=== PATIENT | male | born 1955 | race Caucasian/White ===

== ENCOUNTER 2016-12-02 11:39 | Emergency (ER) | payer MEDICARE, MEDICAID ==
--- NOTE | 2016-12-02 12:22 | ED Physician Chart ---
Chief Complaint/HPI - Patient Information Date Seen:: 12/02/16 Time Seen:: 12:00 Chief Complaint:: soreness lower legs and feet History of Present Illness:: patient has had soreness lower legs, feet and low back for a long time, since the or . Normally goes barefoot. Allergies:: Allergies Allergy/AdvReac Type Severity Reaction Status Date / Time MDX No Known Allergies - Nka Allergy Verified 02/04/14 15:46 [No Known Allergies - Nka] Vitals:: Vital Signs - 8 hr 12/02/16 11:59 Temp 98.7 F HR 78 RR 16 BP 181/117 O2 Sat % 98 Historian:: Patient Review:: Nurse's Note Reviewed Review of Systems - Review of Systems General/Constitutional: No fever, No chills Skin: Skin lesions Head: No headache, No light-headedness Eyes: No loss of vision ENT: No earache, No sore throat, No tinnitus Neck: No neck pain Cardio Vascular: No chest pain, No palpitations Pulmonary: No SOB GI: No nausea, No vomiting Musculoskeletal: Back pain, Muscle pain Endocrine: No polyuria, No polydipsia Psychiatric: Depression Hematopoietic: No bruising Allergic/Immuno: No urticaria Neurological: No syncope, No headache Past Medical History - Past Medical History Past Medical History: HTN, DM, Dyslipidemia, Other (gallstones; hypercholesterolemia) Family History: Heart disease Social History: Smoker, Other (smokes 1 1/2 PPD) Surgical History: Hernia Psychiatricy History: Depression Medication: Reviewed Family Medical History - Family Member Mother History Unknown: Yes Physical Exam - Physical Examination General/Constitutional: Well-developed, well-nourished, Alert Head: Atraumatic Eyes: Lids, conjuctiva normal, PERRL (callouses medial side both large toes; 5 mm band of erythema proximal to right large toe nail.) Other Skin comments:: callouses medal both large toes; 5 mm of erythma proximal to nail right large toe. ENMT: Tonsils nl Other ENMT comments:: 4/4 peridontal disease Neck: No nuchal rigidity Respiratory: Nl effort/Exclusion, Clear to Auscultation, No Wheeze/Rhonchi/Rales Cardio Vascular: RRR, No murmur, gallop, rubs GI: No tenderness/rebounding/guarding, No organomegaly, No hernia, Normal BS's, Nondistended : No CVA tenderness Other Extremities comments:: 2/4 pre-tibial edema; feet warm; neither dorsalis pedis pulse palpable. Left posterior tibial pulse 4/4; right not palpable Labs/Radiology/EKG Results - Lab Results Comments:: Laboratory Results - last 24 hr 12/02/16 12/02/16 12:26 12:26 WBC 7.9 D RBC 4.79 Hgb 15.0 Hct 45.1 MCV 94.2 MCH 31.3 H MCHC Differential 33.2 RDW 11.7 Plt Count 286 D MPV 6.1 Neutrophils % 66.9 Lymphocytes % 22.9 Monocytes % 7.1 Eosinophils % 2.4 Basophils % 0.7 Sodium 129 L Potassium 4.0 Chloride 97 L Carbon Dioxide 23.5 Anion Gap 12.5 BUN 14 Creatinine 0.8 Est GFR ( Amer) > 60.0 Est GFR (Non-Af Amer) > 60.0 BUN/Creatinine Ratio 17.5 Glucose 151 H Calcium 10.3 Magnesium 1.7 L - Radiology Results Results: arterial Doppler normal ED Septic Shock - . Is Septic Shock (SBP<90, OR Lactate>4 mmol\L) present?: No - <6hrs of presentation: Vital Signs: Vital Signs - 8 hr 12/02/16 11:59 Temp 98.7 F HR 78 RR 16 BP 181/117 O2 Sat % 98 Reassessment (Disposition) - Reassessment Reassessment Condition:: Unchanged - Diagnosis Diagnosis:: cellulitis right large toe; diabetic neuropathy; hypomagnesemia - Aftercare/Follow up Instructions Aftercare/Follow-Up Instructions:: Refer to Discharge Instructions Medication Prescribed:: Keflex 500 mg QID for 10 days K K - Patient Disposition Discharge/Transfer:: Home Condition at Disposition:: Stable, Unchanged
[2016-12-02 12:38] LABS: % BASOPHILS 0.7 % (0.0-2.0); % EOSINOPHILS 2.4 % (0.0-5.0); % LYMPHOCYTES 22.9 % (20.0-50.0); % MONOCYTES 7.1 % (2.0-10.0); % NEUTROPHILS 66.9 % (40.0-80.0); HEMATOCRIT 45.1 % (39.0-49.0); MEAN CELL VOLUME 94.2 fl (80-99); MEAN CORPUSCULAR HEMOGLOBIN 31.3 pg (26.0-30.0); MEAN CORPUSCULAR HGB CONC 33.2 pg (28.0-36.0); MEAN PLATELET VOLUME 6.1 fl; NEUTROPHILE ABSOLUTE 5.2 Th/cmm (1.8-8.0); RED BLOOD COUNT 4.79 Mil/cmm (4.30-5.70); RED CELL DISTRIBUTION WIDTH 11.7 % (11.5-20.0)
[2016-12-02 12:42] LABS: PLATELET COUNT 286 Th/cmm (150-400); WHITE BLOOD COUNT 7.9 Th/cmm (4.8-10.8)
[2016-12-02 12:49] LABS: ANION GAP 12.5 (7.0-16.0); BUN - UREA NITROGEN 14 mg/dL (7-25); BUN/CREATININE RATIO 17.5; CALCIUM SERUM 10.3 mg/dL (8.6-10.3); CARBON DIOXIDE 23.5 mEq/L (21.0-31.0); CHLORIDE 97 mEq/L (98-107); CREATININE - SERUM 0.8 mg/dL (0.7-1.3); GLUCOSE 151 mg/dL (70-105); MAGNESIUM 1.7 mg/dL (1.9-2.7); SODIUM SERUM 129 mEq/L (136-145)
--- NOTE | 2016-12-02 15:40 | Diagnostic Imaging Report ---
Bilateral lower extremity Doppler arterial ultrasound exam HISTORY: Absent pulses, atherosclerotic vascular disease Sonographic sector images were obtained through the arterial systems of both legs. Associated Doppler data was obtained. The exam the right leg demonstrates triphasic waveforms within the common femoral, superficial femoral, popliteal, anterior tibial, posterior tibial, and dorsalis pedis arteries. Slight decrease in velocity noted within the distal superficial femoral and popliteal artery regions. Elevated velocity noted within the right posterior tibial artery. The ankle-brachial index remains normal (1.0). Sonographic images demonstrate mild to moderate diffuse atherosclerotic plaque throughout the arterial system. The exam of the left leg demonstrates triphasic waveforms throughout the arterial system with the exception of biphasic waveforms through the anterior tibial artery. Slight increase in velocity noted within the left popliteal artery and posterior tibial artery regions. The ankle-brachial index appears normal (1.1). Mild to moderate diffuse atherosclerotic changes noted on sonographic images. IMPRESSION: 1. Mild to moderate diffuse bilateral atherosclerotic changes. No discrete focal occlusion identified.
== END 2016-12-02 14:30 | disposition home or self-care (01) ==
LOC: ER 11:39
DX: L03.031 Cellulitis of right toe (principal); E11.40 Type 2 diabetes mellitus with diabetic neuropathy, unspecified; E83.42 Hypomagnesemia; I10 Essential (primary) hypertension; E78.5 Hyperlipidemia, unspecified; E78.00 Pure hypercholesterolemia, unspecified; F17.210 Nicotine dependence, cigarettes, uncomplicated
CPT/HCPCS: 36415-UA; 80048-TC; 83735-TC; 85025-TC; 93925-TC

== ENCOUNTER 2020-05-21 13:01 | Inpatient (IN) | payer MEDICARE, MEDICAID ==
[2020-05-21 22:16] VITALS: BP 145/70
[2020-05-21] MEDS ORDERED: Acetaminophen 500 MG TAB PO PRN (22:22)
[2020-05-21] MEDS ORDERED: Maalox 30 mL Cup PO PRN (22:22)
[2020-05-21] MEDS ORDERED: Magnesium Hydroxide (MOM) 30 mL UDC PO PRN (22:22)
[2020-05-22] MEDS: Multivitamin Tab PO SCH (08:30)
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
[2020-05-23] MEDS: Multivitamin Tab PO SCH (08:31)
[2020-05-23] MEDS: Aspirin 81mg Chewable Tab PO SCH (08:31)
[2020-05-23 14:21] LABS: HEMOGLOBIN 13.9 g/dL (14.0-18.0); RED BLOOD COUNT 4.36 MIL/uL (4.2-6.2); WHITE BLOOD COUNT 7.8 K/uL (4.8-10.8)
[2020-05-23 14:22] LABS: % NEUTROPHILS 59.5 % (40-70); BASOPHILS % (AUTO) 0.7 % (0.0-2.0); EOSINOPHILS % (AUTO) 3.6 % (0-4); HEMATOCRIT 40.4 % (36-54); LYMPHOCYTES % (AUTO) 29.4 % (20.5-51.5); MEAN CORPUSCULAR HEMOGLOBIN 32 pg (27-31); MEAN CORPUSCULAR HGB CONC 34 % (32-36); MEAN CORPUSCULAR VOLUME 93 fL (79.0-98.0); MONOCYTES % (AUTO) 6.8 % (1.7-9.3); NEUTROPHILS # (AUTO) 4.6 K/uL (1.8-7.7); PLATELET COUNT 252 K/uL (130-430); RED CELL DISTRIBUTION WIDTH 13.1 % (9.0-15.0)
[2020-05-23 14:23] LABS: BASOPHILS # (AUTO) 0.1 K/uL (0.0-0.2); EOSINOPHILS # (AUTO) 0.3 K/uL (0.0-0.4); LYMPHOCYTES # (AUTO) 2.3 K/uL (1.0-5.5); MONOCYTES # (AUTO) 0.5 K/uL (0.0-1.0)
--- NOTE | 2020-05-23 14:35 | Internal Medicine Prog Note ---
Internal Medicine Subjective - Subjective Service Date: 05/23/20 Patient seen and examined:: without staff Patient is:: awake Per staff patient has:: no adverse event, no episodes of fall (no complaints) Internal Medicine Objective - Results Result Diagrams: 05/23/20 13:05 Recent Labs: Laboratory Last Values WBC 7.8 K/uL (4.8-10.8) 05/23/20 13:05 RBC 4.36 MIL/uL (4.2-6.2) 05/23/20 13:05 Hgb 13.9 g/dL (14.0-18.0) L 05/23/20 13:05 Hct 40.4 % (36-54) 05/23/20 13:05 MCV 93 fL (79.0-98.0) 05/23/20 13:05 MCH 32 pg (27-31) H 05/23/20 13:05 MCHC 34 % (32-36) 05/23/20 13:05 RDW 13.1 % (9.0-15.0) 05/23/20 13:05 Plt Count 252 K/uL (130-430) 05/23/20 13:05 MPV 6.9 fl (7.4-10.4) L 05/23/20 13:05 Neut % (Auto) 59.5 % (40-70) 05/23/20 13:05 Lymph % (Auto) 29.4 % (20.5-51.5) 05/23/20 13:05 [place] % (Auto) 6.8 % (1.7-9.3) 05/23/20 13:05 Eos % (Auto) 3.6 % (0-4) 05/23/20 13:05 Baso % (Auto) 0.7 % (0.0-2.0) 05/23/20 13:05 Neut # (Auto) 4.6 K/uL (1.8-7.7) 05/23/20 13:05 Lymph # (Auto) 2.3 K/uL (1.0-5.5) 05/23/20 13:05 [place] # (Auto) 0.5 K/uL (0.0-1.0) 05/23/20 13:05 Eos # (Auto) 0.3 K/uL (0.0-0.4) 05/23/20 13:05 Baso # (Auto) 0.1 K/uL (0.0-0.2) 05/23/20 13:05 POC Glucose 150 MG/DL (70 - 105) H 05/21/20 19:56 - Physical Exam Vitals and I&O: Vital Signs Temp 97.9 F 05/23/20 06:06 Pulse 68 05/23/20 06:06 Resp 18 05/23/20 07:40 BP 117/63 05/23/20 06:06 Pulse Ox 95 05/23/20 06:06 Intake & Output 05/22/20 05/23/20 05/23/20 18:59 06:59 18:59 Intake Total 1200 240 Balance 1200 240 Intake: Oral 1200 240 Other: # Voids 4 1 # Bowel Movements 1 Active Medications: Current Medications Acetaminophen (Tylenol) 650 mg PO Q4H PRN PRN Reason: Pain (Mild 1-3) Stop: 07/20/20 22:21 Acetaminophen (Tylenol Extra Strength) 1,000 mg PO Q6H PRN PRN Reason: Pain (Moderate 4-6) Stop: 07/20/20 22:21 Al Hydrox/Mg Hydrox/Simethicone (Maalox) 30 ml PO Q4HR PRN PRN Reason: GI DISTRESS Stop: 07/20/20 22:21 Aspirin (Aspirin Chewable) 81 mg PO DAILY [facility] Stop: 07/22/20 08:59 Last Admin: 05/23/20 08:31 Dose: 81 mg Ibuprofen (Motrin) 400 mg PO Q4H PRN PRN Reason: Pain (Severe 7-10) Stop: 07/20/20 22:21 Lorazepam (Ativan) 0.5 mg PO Q4HR PRN; Protocol PRN Reason: Anxiety Stop: 06/20/20 22:21 Last Admin: 05/23/20 08:31 Dose: 0.5 mg Magnesium Hydroxide (Milk Of Magnesia) 30 ml PO HS PRN PRN Reason: Constipation Multivitamins/Vitamin C (Theragran) 1 tab PO DAILY JAN Stop: 07/21/20 08:59 Last Admin: 05/23/20 08:31 Dose: 1 tab Risperidone (Risperdal) 0.5 mg PO BID JAN; Protocol Stop: 07/21/20 16:59 Last Admin: 05/23/20 08:31 Dose: 0.5 mg Zolpidem Tartrate (Ambien) 5 mg PO HS PRN PRN Reason: Insomnia Stop: 07/20/20 22:21 Last Admin: 05/22/20 21:04 Dose: 5 mg General: lethargic HEENT: NC/AT Neck: Supple Lungs: CTAB Cardiovascular: RRR, Normal S1, Normal S2 Abdomen: soft Extremities: clear - Procedures Procedures: Procedures Procedure Code Date OTHER GROUP THERAPY 94.44 02/04/14 Internal Medicine Assmt/Plan - Assessment Assessment: 1. DM 2. HTN - Plan Plan: continue meds reviewed medical records d/w r.n.
[2020-05-23 14:41] LABS: POTASSIUM SERUM 4.1 mmol/L (3.5-5.1)
[2020-05-23 14:42] LABS: BILIRUBIN,TOTAL 0.4 mg/dL (0.0-1.0); CALCIUM SERUM 9.2 mg/dL (8.4-10.2); CREATININE - SERUM 1.02 mg/dL (0.70-1.30); TOTAL PROTEIN,SERUM 6.2 g/dL (6.4-8.3)
[2020-05-23 14:43] LABS: CHOLESTEROL 139 mg/dL (<200); LDL CHOLESTEROL 78 mg/dL (0-129); TRIGLYCERIDES 252 mg/dL (30-150)
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
[2020-05-24] MEDS: Aspirin 81mg Chewable Tab PO SCH (08:53)
[2020-05-24] MEDS: Multivitamin Tab PO SCH (08:53)
--- NOTE | 2020-05-24 14:30 | General Progress Note ---
Subjective - Review of Systems Service Date: 05/24/20 Subjective: * Visit * Lab Results * Nursing staff concerned about abnormal labs * No acute symptoms Objective - Results Result Diagrams: 05/23/20 13:05 05/23/20 13:05 Recent Labs: Laboratory Last Values WBC 7.8 K/uL (4.8-10.8) 05/23/20 13:05 RBC 4.36 MIL/uL (4.2-6.2) 05/23/20 13:05 Hgb 13.9 g/dL (14.0-18.0) L 05/23/20 13:05 Hct 40.4 % (36-54) 05/23/20 13:05 MCV 93 fL (79.0-98.0) 05/23/20 13:05 MCH 32 pg (27-31) H 05/23/20 13:05 MCHC 34 % (32-36) 05/23/20 13:05 RDW 13.1 % (9.0-15.0) 05/23/20 13:05 Plt Count 252 K/uL (130-430) 05/23/20 13:05 MPV 6.9 fl (7.4-10.4) L 05/23/20 13:05 Neut % (Auto) 59.5 % (40-70) 05/23/20 13:05 Lymph % (Auto) 29.4 % (20.5-51.5) 05/23/20 13:05 [place] % (Auto) 6.8 % (1.7-9.3) 05/23/20 13:05 Eos % (Auto) 3.6 % (0-4) 05/23/20 13:05 Baso % (Auto) 0.7 % (0.0-2.0) 05/23/20 13:05 Neut # (Auto) 4.6 K/uL (1.8-7.7) 05/23/20 13:05 Lymph # (Auto) 2.3 K/uL (1.0-5.5) 05/23/20 13:05 [place] # (Auto) 0.5 K/uL (0.0-1.0) 05/23/20 13:05 Eos # (Auto) 0.3 K/uL (0.0-0.4) 05/23/20 13:05 Baso # (Auto) 0.1 K/uL (0.0-0.2) 05/23/20 13:05 Sodium 127 mmol/L (136-145) L 05/23/20 13:05 Potassium 4.1 mmol/L (3.5-5.1) 05/23/20 13:05 Chloride 95 mmol/L (98-107) L 05/23/20 13:05 Carbon Dioxide 26 mmol/L (23-29) 05/23/20 13:05 Anion Gap 10 (5-15) 05/23/20 13:05 BUN 20 mg/dL (8-21) 05/23/20 13:05 Creatinine 1.02 mg/dL (0.70-1.30) 05/23/20 13:05 Glucose 143 mg/dL (70-99) H 05/23/20 13:05 POC Glucose 150 MG/DL (70 - 105) H 05/21/20 19:56 Hemoglobin A1c 6.0 % (4.8-5.6) H 05/23/20 12:55 Calcium 9.2 mg/dL (8.4-10.2) 05/23/20 13:05 Total Bilirubin 0.4 mg/dL (0.0-1.0) 05/23/20 13:05 AST 23 U/L (10-37) 05/23/20 13:05 ALT 30 U/L (12-78) 05/23/20 13:05 Alkaline Phosphatase 72 U/L (46-116) 05/23/20 13:05 Total Protein 6.2 g/dL (6.4-8.3) L 05/23/20 13:05 Albumin 3.1 g/dL (3.4-5.0) L 05/23/20 13:05 Triglycerides 252 mg/dL (30-150) H 05/23/20 13:05 Cholesterol 139 mg/dL (<200) 05/23/20 13:05 LDL Cholesterol 78 mg/dL (0-129) 05/23/20 13:05 HDL Cholesterol 38 mg/dL (>45) L 05/23/20 13:05 Vitamin B12 541 pg/mL (232-1245) 05/23/20 13:05 TSH 1.64 uIU/ml (0.358-3.740) 05/23/20 13:05 - Physical Exam Vitals and I&O: Vital Signs Temp 97.8 F 05/24/20 06:07 Pulse 65 05/24/20 06:07 Resp 20 05/24/20 08:00 BP 126/96 05/24/20 06:07 Pulse Ox 96 05/24/20 06:07 Intake & Output 05/23/20 05/24/20 05/24/20 18:59 06:59 18:59 Intake Total 1200 360 Balance 1200 360 Intake: Oral 1200 360 Other: # Voids 2 # Bowel Movements 1 0 Active Medications: Current Medications Acetaminophen (Tylenol) 650 mg PO Q4H PRN PRN Reason: Pain (Mild 1-3) Stop: 07/20/20 22:21 Acetaminophen (Tylenol Extra Strength) 1,000 mg PO Q6H PRN PRN Reason: Pain (Moderate 4-6) Stop: 07/20/20 22:21 Al Hydrox/Mg Hydrox/Simethicone (Maalox) 30 ml PO Q4HR PRN PRN Reason: GI DISTRESS Stop: 07/20/20 22:21 Last Admin: 05/23/20 23:30 Dose: 30 ml Aspirin (Aspirin Chewable) 81 mg PO DAILY JAN Stop: 07/22/20 08:59 Last Admin: 05/24/20 08:53 Dose: 81 mg Ibuprofen (Motrin) 400 mg PO Q4H PRN PRN Reason: Pain (Severe 7-10) Stop: 07/20/20 22:21 Lorazepam (Ativan) 0.5 mg PO Q4HR PRN; Protocol PRN Reason: Anxiety Stop: 06/20/20 22:21 Last Admin: 05/23/20 23:31 Dose: 0.5 mg Magnesium Hydroxide (Milk Of Magnesia) 30 ml PO HS PRN PRN Reason: Constipation Multivitamins/Vitamin C (Theragran) 1 tab PO DAILY JAN Stop: 07/21/20 08:59 Last Admin: 05/24/20 08:53 Dose: 1 tab Risperidone (Risperdal) 0.5 mg PO BID JAN; Protocol Stop: 07/21/20 16:59 Last Admin: 05/24/20 08:53 Dose: 0.5 mg Zolpidem Tartrate (Ambien) 5 mg PO HS PRN PRN Reason: Insomnia Stop: 07/20/20 22:21 Last Admin: 05/23/20 21:14 Dose: 5 mg General: No acute distress Cardiovascular: Regular rate, Normal S1, Normal S2 Lungs: Clear to auscultation, Normal air movement Abdomen: Bowel sounds, Soft - Procedures Procedures: Procedures Procedure Code Date OTHER GROUP THERAPY 94.44 02/04/14 Assessment/Plan - Assessment Assessment: * DM * HTN * Hyponatremia * Dyslipidemia * Hypoalbuminemia * Protein-Calorie Malnutrition (Moderate) * Schizophrenia - Plan Plan: Fluid restriction Obtain labs on Tuesday
--- NOTE | 2020-05-24 14:37 | Progress Notes ---
DATE: 05/24/2020 Covering for Ottoniel Lala M.D. SUBJECTIVE: The patient was interviewed. Case was discussed with staff. Chart and records were reviewed. Per the staff, the patient has been easily irritable and paranoid. The patient also apparently has been disheveled, unkempt. The patient was visited at bedside. He is quite withdrawn. He is sleeping. He does awake to his name, but does not want to cooperate at all with the interview, mumbling speech and unable to assess otherwise due to his poor cooperation. MENTAL STATUS EXAMINATION: The patient is an elderly male, sleeping in his hospital bed, awakes to his name, but quickly falls back asleep, otherwise unable to assess due to his poor cooperation. ASSESSMENT AND PLAN: We will continue the patient's acute psychiatric hospitalization. We will continue medications as prescribed. No side effects have been noted. We will monitor for improvement. We will also attempt to help the patient develop a plan for self-care and we will also encourage the patient to participate in group and milieu therapy. JOB# [id number]
[2020-05-25] MEDS: Multivitamin Tab PO SCH (08:59)
[2020-05-25] MEDS: Aspirin 81mg Chewable Tab PO SCH (08:59)
[2020-05-26] MEDS: Multivitamin Tab PO SCH (08:03)
[2020-05-26] MEDS: Aspirin 81mg Chewable Tab PO SCH (08:04)
--- NOTE | 2020-05-27 06:22 | Psych Progress Note ---
Psych Progress Note - Intro Date of Progress Note: 05/26/20 - Assessment Assessment: patient remains disorganized, disheveled, easily angered. internally pre- occupied and paranoid. he is uncooperative with interview and irritable. - Vitals, I&O Vitals: Vital Signs - 24 hr 05/26/20 05/26/20 05/26/20 08:04 13:37 14:42 Temp 97.3 F HR 72 82 RR 20 20 BP 108/50 106/56 O2 Sat % 96 05/26/20 05/26/20 05/27/20 19:38 20:11 05:46 Temp 97.6 F 98.1 F HR 70 69 RR 18 20 18 BP 119/51 117/50 O2 Sat % 96 97 - Objective Psych General Appearance: Report: Little eye-contact Psych Behavior: Report: Uncooperative Psych Mood: Report: Angry Psych Affect: Report: Flat Psych Insight: Report: Impaired Psych Judgement: Report: Impaired - Plan Plan: cont meds - Review of Relevant Data Review of Relevant Data: I have reviewed the following items and time gisell (where applicable) has been applied. - Medications Current Medications: Current Medications Acetaminophen (Tylenol) 650 mg PO Q4H PRN PRN Reason: Pain (Mild 1-3) Stop: 07/20/20 22:21 Acetaminophen (Tylenol Extra Strength) 1,000 mg PO Q6H PRN PRN Reason: Pain (Moderate 4-6) Stop: 07/20/20 22:21 Al Hydrox/Mg Hydrox/Simethicone (Maalox) 30 ml PO Q4HR PRN PRN Reason: GI DISTRESS Stop: 07/20/20 22:21 Last Admin: 05/23/20 23:30 Dose: 30 ml Aspirin (Aspirin Chewable) 81 mg PO DAILY [facility] Stop: 07/22/20 08:59 Last Admin: 05/26/20 08:04 Dose: 81 mg Fluoxetine HCl (Prozac) 10 mg PO DAILY [facility] Stop: 07/24/20 08:59 Ibuprofen (Motrin) 400 mg PO Q4H PRN PRN Reason: Pain (Severe 7-10) Stop: 07/20/20 22:21 Lisinopril (Zestril) 5 mg PO DAILY [facility] Stop: 07/24/20 08:59 Last Admin: 05/26/20 08:04 Dose: Not Given Lorazepam (Ativan) 0.5 mg PO Q4HR PRN; Protocol PRN Reason: Anxiety Stop: 06/20/20 22:21 Last Admin: 05/23/20 23:31 Dose: 0.5 mg Multivitamins/Vitamin C (Theragran) 1 tab PO DAILY JAN Stop: 07/21/20 08:59 Last Admin: 05/26/20 08:03 Dose: 1 tab Risperidone (Risperdal) 1 mg PO BID JAN; Protocol Stop: 07/26/20 08:59 Simvastatin (Zocor) 10 mg PO HS JAN Stop: 07/23/20 20:59 Last Admin: 05/26/20 21:04 Dose: 10 mg Zolpidem Tartrate (Ambien) 5 mg PO HS PRN PRN Reason: Insomnia Stop: 07/20/20 22:21 Last Admin: 05/26/20 21:04 Dose: 5 mg
--- NOTE | 2020-05-27 06:22 | Psych Progress Note ---
Psych Progress Note - Intro Date of Progress Note: 05/25/20 - Assessment Assessment: patient remains disorganized, disheveled, easily angered. internally pre- occupied and paranoid. he is uncooperative with interview and irritable. - Vitals, I&O Vitals: Vital Signs - 24 hr 05/26/20 05/26/20 05/26/20 08:04 13:37 14:42 Temp 97.3 F HR 72 82 RR 20 20 BP 108/50 106/56 O2 Sat % 96 05/26/20 05/26/20 05/27/20 19:38 20:11 05:46 Temp 97.6 F 98.1 F HR 70 69 RR 18 20 18 BP 119/51 117/50 O2 Sat % 96 97 - Objective Psych General Appearance: Report: Little eye-contact Psych Behavior: Report: Uncooperative Psych Mood: Report: Angry Psych Affect: Report: Flat Psych Insight: Report: Impaired Psych Judgement: Report: Impaired - Plan Plan: cont meds - Review of Relevant Data Review of Relevant Data: I have reviewed the following items and time gisell (where applicable) has been applied. Psych Data Reviewed: Radiology - Medications Current Medications: Current Medications Acetaminophen (Tylenol) 650 mg PO Q4H PRN PRN Reason: Pain (Mild 1-3) Stop: 07/20/20 22:21 Acetaminophen (Tylenol Extra Strength) 1,000 mg PO Q6H PRN PRN Reason: Pain (Moderate 4-6) Stop: 07/20/20 22:21 Al Hydrox/Mg Hydrox/Simethicone (Maalox) 30 ml PO Q4HR PRN PRN Reason: GI DISTRESS Stop: 07/20/20 22:21 Last Admin: 05/23/20 23:30 Dose: 30 ml Aspirin (Aspirin Chewable) 81 mg PO DAILY [facility] Stop: 07/22/20 08:59 Last Admin: 05/26/20 08:04 Dose: 81 mg Fluoxetine HCl (Prozac) 10 mg PO DAILY [facility] Stop: 07/24/20 08:59 Ibuprofen (Motrin) 400 mg PO Q4H PRN PRN Reason: Pain (Severe 7-10) Stop: 07/20/20 22:21 Lisinopril (Zestril) 5 mg PO DAILY [facility] Stop: 07/24/20 08:59 Last Admin: 05/26/20 08:04 Dose: Not Given Lorazepam (Ativan) 0.5 mg PO Q4HR PRN; Protocol PRN Reason: Anxiety Stop: 06/20/20 22:21 Last Admin: 05/23/20 23:31 Dose: 0.5 mg Multivitamins/Vitamin C (Theragran) 1 tab PO DAILY [facility] Stop: 07/21/20 08:59 Last Admin: 05/26/20 08:03 Dose: 1 tab Risperidone (Risperdal) 1 mg PO BID JAN; Protocol Stop: 07/26/20 08:59 Simvastatin (Zocor) 10 mg PO HS JAN Stop: 07/23/20 20:59 Last Admin: 05/26/20 21:04 Dose: 10 mg Zolpidem Tartrate (Ambien) 5 mg PO HS PRN PRN Reason: Insomnia Stop: 07/20/20 22:21 Last Admin: 05/26/20 21:04 Dose: 5 mg
[2020-05-27] MEDS: Aspirin 81mg Chewable Tab PO SCH (08:12)
[2020-05-27] MEDS: Multivitamin Tab PO SCH (08:15)
[2020-05-27 14:10] LABS: CREATININE - SERUM 0.88 mg/dL (0.70-1.30); POTASSIUM SERUM 4.1 mmol/L (3.5-5.1)
[2020-05-27 14:11] LABS: CALCIUM SERUM 8.8 mg/dL (8.4-10.2)
--- NOTE | 2020-05-27 15:11 | Progress Notes ---
DATE: 05/27/2020 SUBJECTIVE: A 65-year-old male, currently in the hospital, noted to be with some periods of outbursts. Staff noting sometimes noted to be aggressive, responding to internal stimuli, angry, paranoid. Mostly withdrawn, keeps to self, some periods of socializing well, but he is easily angered. Poor frustration tolerance. Still talking in an angry voice, can be aggressive at times, concerns he may strike out. __ medication was on a higher dose of Risperdal in the past. Fair sleep and appetite. ASSESSMENT: The patient is symptomatic, still with ongoing concerns for psychosis. PLAN: I will be increasing his dosing of Risperdal today. [facility]# [id number]
--- NOTE | 2020-05-27 19:08 | Internal Medicine Prog Note ---
Internal Medicine Subjective - Subjective Service Date: 05/27/20 (Late entry) Patient seen and examined:: without staff (no fevers no cough no chest pain no sob) Patient is:: awake Per staff patient has:: no adverse event, no episodes of fall (no complaints) Internal Medicine Objective - Results Result Diagrams: 05/23/20 13:05 05/27/20 09:35 Recent Labs: Laboratory Last Values WBC 7.8 K/uL (4.8-10.8) 05/23/20 13:05 RBC 4.36 MIL/uL (4.2-6.2) 05/23/20 13:05 Hgb 13.9 g/dL (14.0-18.0) L 05/23/20 13:05 Hct 40.4 % (36-54) 05/23/20 13:05 MCV 93 fL (79.0-98.0) 05/23/20 13:05 MCH 32 pg (27-31) H 05/23/20 13:05 MCHC 34 % (32-36) 05/23/20 13:05 RDW 13.1 % (9.0-15.0) 05/23/20 13:05 Plt Count 252 K/uL (130-430) 05/23/20 13:05 MPV 6.9 fl (7.4-10.4) L 05/23/20 13:05 Neut % (Auto) 59.5 % (40-70) 05/23/20 13:05 Lymph % (Auto) 29.4 % (20.5-51.5) 05/23/20 13:05 [place] % (Auto) 6.8 % (1.7-9.3) 05/23/20 13:05 Eos % (Auto) 3.6 % (0-4) 05/23/20 13:05 Baso % (Auto) 0.7 % (0.0-2.0) 05/23/20 13:05 Neut # (Auto) 4.6 K/uL (1.8-7.7) 05/23/20 13:05 Lymph # (Auto) 2.3 K/uL (1.0-5.5) 05/23/20 13:05 [place] # (Auto) 0.5 K/uL (0.0-1.0) 05/23/20 13:05 Eos # (Auto) 0.3 K/uL (0.0-0.4) 05/23/20 13:05 Baso # (Auto) 0.1 K/uL (0.0-0.2) 05/23/20 13:05 Sodium 134 mmol/L (136-145) L 05/27/20 09:35 Potassium 4.1 mmol/L (3.5-5.1) 05/27/20 09:35 Chloride 101 mmol/L (98-107) 05/27/20 09:35 Carbon Dioxide 26 mmol/L (23-29) 05/27/20 09:35 Anion Gap 11 (5-15) 05/27/20 09:35 BUN 19 mg/dL (8-21) 05/27/20 09:35 Creatinine 0.88 mg/dL (0.70-1.30) 05/27/20 09:35 Glucose 151 mg/dL (70-99) H 05/27/20 09:35 POC Glucose 150 MG/DL (70 - 105) H 05/21/20 19:56 Hemoglobin A1c 6.0 % (4.8-5.6) H 05/23/20 12:55 Calcium 8.8 mg/dL (8.4-10.2) 05/27/20 09:35 Total Bilirubin 0.4 mg/dL (0.0-1.0) 05/23/20 13:05 AST 23 U/L (10-37) 05/23/20 13:05 ALT 30 U/L (12-78) 05/23/20 13:05 Alkaline Phosphatase 72 U/L (46-116) 05/23/20 13:05 Total Protein 6.2 g/dL (6.4-8.3) L 05/23/20 13:05 Albumin 3.1 g/dL (3.4-5.0) L 05/23/20 13:05 Triglycerides 252 mg/dL (30-150) H 05/23/20 13:05 Cholesterol 139 mg/dL (<200) 05/23/20 13:05 LDL Cholesterol 78 mg/dL (0-129) 05/23/20 13:05 HDL Cholesterol 38 mg/dL (>45) L 05/23/20 13:05 Vitamin B12 541 pg/mL (232-1245) 05/23/20 13:05 TSH 1.64 uIU/ml (0.358-3.740) 05/23/20 13:05 - Physical Exam Vitals and I&O: Vital Signs Temp 96.8 F 05/27/20 14:49 Pulse 74 05/27/20 14:49 Resp 20 05/27/20 14:49 BP 106/44 05/27/20 14:49 Pulse Ox 96 05/27/20 14:49 Intake & Output 05/27/20 05/27/20 05/28/20 06:59 18:59 06:59 Intake Total 240 Balance 240 Intake: Oral 240 Other: # Voids 1 Active Medications: Current Medications Acetaminophen (Tylenol) 650 mg PO Q4H PRN PRN Reason: Pain (Mild 1-3) Stop: 07/20/20 22:21 Acetaminophen (Tylenol Extra Strength) 1,000 mg PO Q6H PRN PRN Reason: Pain (Moderate 4-6) Stop: 07/20/20 22:21 Al Hydrox/Mg Hydrox/Simethicone (Maalox) 30 ml PO Q4HR PRN PRN Reason: GI DISTRESS Stop: 07/20/20 22:21 Last Admin: 05/23/20 23:30 Dose: 30 ml Aspirin (Aspirin Chewable) 81 mg PO DAILY [facility] Stop: 07/22/20 08:59 Last Admin: 05/27/20 08:12 Dose: 81 mg Fluoxetine HCl (Prozac) 10 mg PO DAILY [facility] Stop: 07/24/20 08:59 Last Admin: 05/27/20 08:14 Dose: 10 mg Ibuprofen (Motrin) 400 mg PO Q4H PRN PRN Reason: Pain (Severe 7-10) Stop: 07/20/20 22:21 Lisinopril (Zestril) 5 mg PO DAILY [facility] Stop: 07/24/20 08:59 Last Admin: 05/27/20 08:13 Dose: 5 mg Lorazepam (Ativan) 0.5 mg PO Q4HR PRN; Protocol PRN Reason: Anxiety Stop: 06/20/20 22:21 Last Admin: 05/23/20 23:31 Dose: 0.5 mg Multivitamins/Vitamin C (Theragran) 1 tab PO DAILY [facility] Stop: 07/21/20 08:59 Last Admin: 05/27/20 08:15 Dose: 1 tab Risperidone 1 mg/ Risperidone (0.5 mg) 1.5 mg PO BID JAN Stop: 07/26/20 16:59 Last Admin: 05/27/20 16:31 Dose: 1.5 mg Simvastatin (Zocor) 10 mg PO HS JAN Stop: 07/23/20 20:59 Last Admin: 05/26/20 21:04 Dose: 10 mg Zolpidem Tartrate (Ambien) 5 mg PO HS PRN PRN Reason: Insomnia Stop: 07/20/20 22:21 Last Admin: 05/26/20 21:04 Dose: 5 mg General: lethargic HEENT: NC/AT Neck: Supple Lungs: CTAB Cardiovascular: RRR, Normal S1, Normal S2 Abdomen: soft Extremities: clear - Procedures Procedures: Procedures Procedure Code Date OTHER GROUP THERAPY 94.44 02/04/14 Internal Medicine Assmt/Plan - Assessment Assessment: 1. DM 2. HTN - Plan Plan: continue meds reviewed medical records d/w r.n. Nutritional Asmnt/Malnutr-PDOC - Dietary Evaluation Malnutrition Findings (Please click <Entered> for more info): Nutritional Asmnt/Malnutrition Start: 05/25/20 09: 46 Text: Status: Complete Freq: Protocol: Document 05/25/20 09:46 MISTY (Rec: 05/25/20 09:55 MISTY [email or web address]- [id number]) Nutritional Asmnt/Malnutrition Patient General Information Nutritional Screening Moderate Risk Diagnosis Psychosis Pertinent Medical Hx/Surgical Hx Diabetes, Hypertension Subjective Information Per H&P, patient was admitted from [facility] for agitation for being a threat to family members and neighbors. Per nursing notes, patient is on fluid restriction due to sodium level. FNS providing patient with ~1600 kcal, 80gm protein; eating 100% of meals. Meeting ~75% of calorie and 89% of protein goals Current Diet Order/ Nutrition Support 60 gm CCHO, NCS Patient / S.O Not Indicated Pertinent Medications Maalox, MOM, Theragran Pertinent Labs (05/23) Na 127, Albumin 3.1, TAG 252, HDL 38, HGA1C 6 Nutritional Hx/Data Height 1.83 m Height (Calculated Centimeters) 182.9 Current Weight (lbs) 108.862 kg Weight (Calculated Kilograms) 108.9 Weight (Calculated Grams) 787074.2 [place] Body Weight 178 % [place] Body Weight 134 Body Mass Index (BMI) 32.5 Recent Weight Change No Weight Status Obese GI Symptoms GI Symptoms None Last BM 05/23 x 1 Difficult in: None Food Allergies No Cultural/Ethnic/Alevism Belief none indicated Usual diet at home unknown Skin Integrity/Comment: Jone 22, intact Current %PO Good (75-100%) Estimated Nutritional Goals BEE in Kcals: Adj wt of IBW Calories/Kcals/Kg ADj BW 87.9kg Kcals Calculated ~8041-8882 kcal/day (25-30 kcal/kg) Protein: Adj wt of IBW Protein g/kgm/kg Protein Calculated ~90 gm/day Fluid: ml ~8627-1390 kcal/day (1 ml/kcal ) Nutritional Problem 1. Problem Problem Altered nutrition related lab values related to Etiology electrolyte imbalance/possible excessive fat intake aeb Signs/Symptoms: Na 127, TAG 252, HDL 38 Intervention/Recommendation Comments 1. Consider removing CCHO restriction and adding Cardiac due to HGA1C 6 and TAG 252 and Na 127. 2. If sodium remains low, may consider fluid restriction. Expected Outcomes/Goals Expected Outcomes/Goals Oral intake >75% of meals, weight stable or trend toward IBW, nutrition related labs WNL. F/U LR 06/01
[2020-05-28] MEDS: Multivitamin Tab PO SCH (09:23)
[2020-05-28] MEDS: Aspirin 81mg Chewable Tab PO SCH (09:23)
--- NOTE | 2020-05-28 15:01 | Internal Medicine Prog Note ---
Internal Medicine Subjective - Subjective Service Date: 05/28/20 Patient seen and examined:: without staff Patient is:: awake Per staff patient has:: no adverse event (no fevers, no cough, no sob), no episodes of fall (no complaints) Internal Medicine Objective - Results Result Diagrams: 05/23/20 13:05 05/27/20 09:35 Recent Labs: Laboratory Last Values WBC 7.8 K/uL (4.8-10.8) 05/23/20 13:05 RBC 4.36 MIL/uL (4.2-6.2) 05/23/20 13:05 Hgb 13.9 g/dL (14.0-18.0) L 05/23/20 13:05 Hct 40.4 % (36-54) 05/23/20 13:05 MCV 93 fL (79.0-98.0) 05/23/20 13:05 MCH 32 pg (27-31) H 05/23/20 13:05 MCHC 34 % (32-36) 05/23/20 13:05 RDW 13.1 % (9.0-15.0) 05/23/20 13:05 Plt Count 252 K/uL (130-430) 05/23/20 13:05 MPV 6.9 fl (7.4-10.4) L 05/23/20 13:05 Neut % (Auto) 59.5 % (40-70) 05/23/20 13:05 Lymph % (Auto) 29.4 % (20.5-51.5) 05/23/20 13:05 [place] % (Auto) 6.8 % (1.7-9.3) 05/23/20 13:05 Eos % (Auto) 3.6 % (0-4) 05/23/20 13:05 Baso % (Auto) 0.7 % (0.0-2.0) 05/23/20 13:05 Neut # (Auto) 4.6 K/uL (1.8-7.7) 05/23/20 13:05 Lymph # (Auto) 2.3 K/uL (1.0-5.5) 05/23/20 13:05 [place] # (Auto) 0.5 K/uL (0.0-1.0) 05/23/20 13:05 Eos # (Auto) 0.3 K/uL (0.0-0.4) 05/23/20 13:05 Baso # (Auto) 0.1 K/uL (0.0-0.2) 05/23/20 13:05 Sodium 134 mmol/L (136-145) L 05/27/20 09:35 Potassium 4.1 mmol/L (3.5-5.1) 05/27/20 09:35 Chloride 101 mmol/L (98-107) 05/27/20 09:35 Carbon Dioxide 26 mmol/L (23-29) 05/27/20 09:35 Anion Gap 11 (5-15) 05/27/20 09:35 BUN 19 mg/dL (8-21) 05/27/20 09:35 Creatinine 0.88 mg/dL (0.70-1.30) 05/27/20 09:35 Glucose 151 mg/dL (70-99) H 05/27/20 09:35 POC Glucose 150 MG/DL (70 - 105) H 05/21/20 19:56 Hemoglobin A1c 6.0 % (4.8-5.6) H 05/23/20 12:55 Calcium 8.8 mg/dL (8.4-10.2) 05/27/20 09:35 Total Bilirubin 0.4 mg/dL (0.0-1.0) 05/23/20 13:05 AST 23 U/L (10-37) 05/23/20 13:05 ALT 30 U/L (12-78) 05/23/20 13:05 Alkaline Phosphatase 72 U/L (46-116) 05/23/20 13:05 Total Protein 6.2 g/dL (6.4-8.3) L 05/23/20 13:05 Albumin 3.1 g/dL (3.4-5.0) L 05/23/20 13:05 Triglycerides 252 mg/dL (30-150) H 05/23/20 13:05 Cholesterol 139 mg/dL (<200) 05/23/20 13:05 LDL Cholesterol 78 mg/dL (0-129) 05/23/20 13:05 HDL Cholesterol 38 mg/dL (>45) L 05/23/20 13:05 Vitamin B12 541 pg/mL (232-1245) 05/23/20 13:05 TSH 1.64 uIU/ml (0.358-3.740) 05/23/20 13:05 - Physical Exam Vitals and I&O: Vital Signs Temp 97.7 F 05/28/20 14:00 Pulse 85 05/28/20 14:00 Resp 18 05/28/20 14:00 BP 100/48 05/28/20 14:00 Pulse Ox 99 05/28/20 14:00 Intake & Output 05/27/20 05/28/20 05/28/20 18:59 06:59 18:59 Intake Total 480 Balance 480 Intake: Oral 480 Other: # Voids 2 Active Medications: Current Medications Acetaminophen (Tylenol) 650 mg PO Q4H PRN PRN Reason: Pain (Mild 1-3) Stop: 07/20/20 22:21 Acetaminophen (Tylenol Extra Strength) 1,000 mg PO Q6H PRN PRN Reason: Pain (Moderate 4-6) Stop: 07/20/20 22:21 Al Hydrox/Mg Hydrox/Simethicone (Maalox) 30 ml PO Q4HR PRN PRN Reason: GI DISTRESS Stop: 07/20/20 22:21 Last Admin: 05/23/20 23:30 Dose: 30 ml Aspirin (Aspirin Chewable) 81 mg PO DAILY [facility] Stop: 07/22/20 08:59 Last Admin: 05/28/20 09:23 Dose: 81 mg Fluoxetine HCl (Prozac) 10 mg PO DAILY [facility] Stop: 07/24/20 08:59 Last Admin: 05/28/20 09:24 Dose: 10 mg Ibuprofen (Motrin) 400 mg PO Q4H PRN PRN Reason: Pain (Severe 7-10) Stop: 07/20/20 22:21 Lisinopril (Zestril) 5 mg PO DAILY [facility] Stop: 07/24/20 08:59 Last Admin: 05/28/20 09:22 Dose: Not Given Lorazepam (Ativan) 0.5 mg PO Q4HR PRN; Protocol PRN Reason: Anxiety Stop: 06/20/20 22:21 Last Admin: 05/23/20 23:31 Dose: 0.5 mg Multivitamins/Vitamin C (Theragran) 1 tab PO DAILY [facility] Stop: 07/21/20 08:59 Last Admin: 05/28/20 09:23 Dose: 1 tab Risperidone (Risperdal) 2 mg PO BID JAN Stop: 07/27/20 16:59 Simvastatin (Zocor) 10 mg PO HS JAN Stop: 07/23/20 20:59 Last Admin: 05/27/20 20:38 Dose: 10 mg Zolpidem Tartrate (Ambien) 5 mg PO HS PRN PRN Reason: Insomnia Stop: 07/20/20 22:21 Last Admin: 05/27/20 20:38 Dose: 5 mg General: lethargic HEENT: NC/AT Neck: Supple Lungs: CTAB Cardiovascular: RRR, Normal S1, Normal S2 Abdomen: soft Extremities: clear - Procedures Procedures: Procedures Procedure Code Date OTHER GROUP THERAPY 94.44 02/04/14 Internal Medicine Assmt/Plan - Assessment Assessment: 1. DM 2. HTN - Plan Plan: advised nursing staff to continue low carb diet reviewed medical records d/w r.n. Nutritional Asmnt/Malnutr-PDOC - Dietary Evaluation Malnutrition Findings (Please click <Entered> for more info): Nutritional Asmnt/Malnutrition Start: 05/25/20 09: 46 Text: Status: Complete Freq: Protocol: Document 05/25/20 09:46 MISTY (Rec: 05/25/20 09:55 [id number]) Nutritional Asmnt/Malnutrition Patient General Information Nutritional Screening Moderate Risk Diagnosis Psychosis Pertinent Medical Hx/Surgical Hx Diabetes, Hypertension Subjective Information Per H&P, patient was admitted from [facility] for agitation for being a threat to family members and neighbors. Per nursing notes, patient is on fluid restriction due to sodium level. FNS providing patient with ~1600 kcal, 80gm protein; eating 100% of meals. Meeting ~75% of calorie and 89% of protein goals Current Diet Order/ Nutrition Support 60 gm CCHO, NCS Patient / S.O Not Indicated Pertinent Medications Maalox, MOM, Theragran Pertinent Labs (05/23) Na 127, Albumin 3.1, TAG 252, HDL 38, HGA1C 6 Nutritional Hx/Data Height 1.83 m Height (Calculated Centimeters) 182.9 Current Weight (lbs) 108.862 kg Weight (Calculated Kilograms) 108.9 Weight (Calculated Grams) 537724.2 [place] Body Weight 178 % [place] Body Weight 134 Body Mass Index (BMI) 32.5 Recent Weight Change No Weight Status Obese GI Symptoms GI Symptoms None Last BM 05/23 x 1 Difficult in: None Food Allergies No Cultural/Ethnic/Jew Belief none indicated Usual diet at home unknown Skin Integrity/Comment: Jone 22, intact Current %PO Good (75-100%) Estimated Nutritional Goals BEE in Kcals: Adj wt of IBW Calories/Kcals/Kg ADj BW 87.9kg Kcals Calculated ~0942-5604 kcal/day (25-30 kcal/kg) Protein: Adj wt of IBW Protein g/kgm/kg Protein Calculated ~90 gm/day Fluid: ml ~7882-2685 kcal/day (1 ml/kcal ) Nutritional Problem 1. Problem Problem Altered nutrition related lab values related to Etiology electrolyte imbalance/possible excessive fat intake aeb Signs/Symptoms: Na 127, TAG 252, HDL 38 Intervention/Recommendation Comments 1. Consider removing CCHO restriction and adding Cardiac due to HGA1C 6 and TAG 252 and Na 127. 2. If sodium remains low, may consider fluid restriction. Expected Outcomes/Goals Expected Outcomes/Goals Oral intake >75% of meals, weight stable or trend toward IBW, nutrition related labs WNL. F/U LR 06/01
--- NOTE | 2020-05-28 17:14 | Progress Notes ---
DATE: 05/28/2020 SUBJECTIVE: A 65-year-old male, seems to be showing some signs and symptoms of improvement. Still odd, mostly withdrawn, keeps to self. Still seems to be with some residual psychotic symptoms, but less. Fair sleep and appetite, tolerant of Risperdal. Staff noting he has been generally calm and cooperative. No overt outbursts or agitation, paranoia lessening. ASSESSMENT: The patient seems to be improving. Psychotic symptoms lessening, treatment helping. Medications were reviewed. Labs reviewed. Vitals were reviewed. No overt side effects, no EPS. Discussed with staff, nursing, socially responsible investment adviser. We will monitor for further 1-2 days. We will be increasing his dosing of Risperdal today. JOB# [id number]
[2020-05-29] MEDS: Aspirin 81mg Chewable Tab PO SCH (08:44)
[2020-05-29] MEDS: Multivitamin Tab PO SCH (08:44)
--- NOTE | 2020-05-29 12:04 | Discharge Summary ---
DATE OF DISCHARGE: 05/29/2020 HISTORY OF PRESENT ILLNESS: A 65-year-old male with history of schizophrenia, living at home with a roommate and feeling the roommate was not liking him, did not want to take medications, all of his medications. PAST PSYCHIATRIC HISTORY: Admissions in the past. SOCIAL HISTORY: Noted. MEDICATIONS: Noted. MENTAL STATUS EXAMINATION: Please see full psych eval for details. DIAGNOSES: Schizophrenia, poor medication and treatment compliance. MEDICAL: Please see full H and P. HOSPITAL COURSE: After initial assessment, the patient was restarted on medications, Risperdal. Over the course of treatment, mood improved, affect improved, getting along well with others, taking his medications. No overt agitation or escalation of behaviors. Sleeping well, eating well. Staff noting he has been generally calm, friendly and cooperative, compliance, sociable. CONDITION UPON DISCHARGE: Improved, better ADLs, linear, also engaged. No SI, no HI, no intent, no plan or overt psychotic symptoms, better insight. DIAGNOSIS: Schizophrenia. MEDICAL HISTORY: Please see full H and P. PROGNOSIS: The patient follows up with outpatient mental health services and remains compliant with treatment. Prognosis will improve, otherwise guarded. JOB# [id number]
--- NOTE | 2020-05-29 14:16 | Internal Medicine Prog Note ---
Internal Medicine Subjective - Subjective Service Date: 05/29/20 Patient seen and examined:: without staff Patient is:: awake Per staff patient has:: no adverse event (no fevers, no cough, no sob), no episodes of fall (no complaints) Internal Medicine Objective - Results Result Diagrams: 05/23/20 13:05 05/27/20 09:35 Recent Labs: Laboratory Last Values WBC 7.8 K/uL (4.8-10.8) 05/23/20 13:05 RBC 4.36 MIL/uL (4.2-6.2) 05/23/20 13:05 Hgb 13.9 g/dL (14.0-18.0) L 05/23/20 13:05 Hct 40.4 % (36-54) 05/23/20 13:05 MCV 93 fL (79.0-98.0) 05/23/20 13:05 MCH 32 pg (27-31) H 05/23/20 13:05 MCHC 34 % (32-36) 05/23/20 13:05 RDW 13.1 % (9.0-15.0) 05/23/20 13:05 Plt Count 252 K/uL (130-430) 05/23/20 13:05 MPV 6.9 fl (7.4-10.4) L 05/23/20 13:05 Neut % (Auto) 59.5 % (40-70) 05/23/20 13:05 Lymph % (Auto) 29.4 % (20.5-51.5) 05/23/20 13:05 [place] % (Auto) 6.8 % (1.7-9.3) 05/23/20 13:05 Eos % (Auto) 3.6 % (0-4) 05/23/20 13:05 Baso % (Auto) 0.7 % (0.0-2.0) 05/23/20 13:05 Neut # (Auto) 4.6 K/uL (1.8-7.7) 05/23/20 13:05 Lymph # (Auto) 2.3 K/uL (1.0-5.5) 05/23/20 13:05 [place] # (Auto) 0.5 K/uL (0.0-1.0) 05/23/20 13:05 Eos # (Auto) 0.3 K/uL (0.0-0.4) 05/23/20 13:05 Baso # (Auto) 0.1 K/uL (0.0-0.2) 05/23/20 13:05 Sodium 134 mmol/L (136-145) L 05/27/20 09:35 Potassium 4.1 mmol/L (3.5-5.1) 05/27/20 09:35 Chloride 101 mmol/L (98-107) 05/27/20 09:35 Carbon Dioxide 26 mmol/L (23-29) 05/27/20 09:35 Anion Gap 11 (5-15) 05/27/20 09:35 BUN 19 mg/dL (8-21) 05/27/20 09:35 Creatinine 0.88 mg/dL (0.70-1.30) 05/27/20 09:35 Glucose 151 mg/dL (70-99) H 05/27/20 09:35 POC Glucose 150 MG/DL (70 - 105) H 05/21/20 19:56 Hemoglobin A1c 6.0 % (4.8-5.6) H 05/23/20 12:55 Calcium 8.8 mg/dL (8.4-10.2) 05/27/20 09:35 Total Bilirubin 0.4 mg/dL (0.0-1.0) 05/23/20 13:05 AST 23 U/L (10-37) 05/23/20 13:05 ALT 30 U/L (12-78) 05/23/20 13:05 Alkaline Phosphatase 72 U/L (46-116) 05/23/20 13:05 Total Protein 6.2 g/dL (6.4-8.3) L 05/23/20 13:05 Albumin 3.1 g/dL (3.4-5.0) L 05/23/20 13:05 Triglycerides 252 mg/dL (30-150) H 05/23/20 13:05 Cholesterol 139 mg/dL (<200) 05/23/20 13:05 LDL Cholesterol 78 mg/dL (0-129) 05/23/20 13:05 HDL Cholesterol 38 mg/dL (>45) L 05/23/20 13:05 Vitamin B12 541 pg/mL (232-1245) 05/23/20 13:05 TSH 1.64 uIU/ml (0.358-3.740) 05/23/20 13:05 - Physical Exam Vitals and I&O: Vital Signs Temp 97 F 05/29/20 06:29 Pulse 77 05/29/20 12:20 Resp 18 05/29/20 12:20 BP 130/73 05/29/20 12:20 Pulse Ox 100 05/29/20 06:29 Intake & Output 05/28/20 05/29/20 05/29/20 18:59 06:59 18:59 Intake Total 1300 120 Balance 1300 120 Intake: Oral 1300 120 Other: # Voids 3 3 # Bowel Movements 0 Stool Characteristics Formed [place] Active Medications: Current Medications Acetaminophen (Tylenol) 650 mg PO Q4H PRN PRN Reason: Pain (Mild 1-3) Stop: 07/20/20 22:21 Acetaminophen (Tylenol Extra Strength) 1,000 mg PO Q6H PRN PRN Reason: Pain (Moderate 4-6) Stop: 07/20/20 22:21 Al Hydrox/Mg Hydrox/Simethicone (Maalox) 30 ml PO Q4HR PRN PRN Reason: GI DISTRESS Stop: 07/20/20 22:21 Last Admin: 05/23/20 23:30 Dose: 30 ml Aspirin (Aspirin Chewable) 81 mg PO DAILY [facility] Stop: 07/22/20 08:59 Last Admin: 05/29/20 08:44 Dose: 81 mg Fluoxetine HCl (Prozac) 10 mg PO DAILY [facility] Stop: 07/24/20 08:59 Last Admin: 05/29/20 08:44 Dose: 10 mg Ibuprofen (Motrin) 400 mg PO Q4H PRN PRN Reason: Pain (Severe 7-10) Stop: 07/20/20 22:21 Lisinopril (Zestril) 5 mg PO DAILY [facility] Stop: 07/24/20 08:59 Last Admin: 05/29/20 08:45 Dose: 5 mg Lorazepam (Ativan) 0.5 mg PO Q4HR PRN; Protocol PRN Reason: Anxiety Stop: 06/20/20 22:21 Last Admin: 05/23/20 23:31 Dose: 0.5 mg Multivitamins/Vitamin C (Theragran) 1 tab PO DAILY [facility] Stop: 07/21/20 08:59 Last Admin: 05/29/20 08:44 Dose: 1 tab Risperidone (Risperdal) 2 mg PO BID [facility]AN Stop: 07/27/20 16:59 Last Admin: 05/29/20 08:44 Dose: 2 mg Simvastatin (Zocor) 10 mg PO HS JAN Stop: 07/23/20 20:59 Last Admin: 05/28/20 20:35 Dose: 10 mg Zolpidem Tartrate (Ambien) 5 mg PO HS PRN PRN Reason: Insomnia Stop: 07/20/20 22:21 Last Admin: 05/28/20 20:35 Dose: 5 mg General: lethargic HEENT: NC/AT Neck: Supple Lungs: CTAB Cardiovascular: RRR, Normal S1, Normal S2 Abdomen: soft Extremities: clear - Procedures Procedures: Procedures Procedure Code Date OTHER GROUP THERAPY 94.44 02/04/14 Internal Medicine Assmt/Plan - Assessment Assessment: 1. DM 2. HTN - Plan Plan: advised nursing staff to continue low carb diet reviewed medical records d/w r.n. Nutritional Asmnt/Malnutr-PDOC - Dietary Evaluation Malnutrition Findings (Please click <Entered> for more info): Nutritional Asmnt/Malnutrition Start: 05/25/20 09: 46 Text: Status: Complete Freq: Protocol: Document 05/25/20 09:46 MISTY (Rec: 05/25/20 09:55 MMERIN EVELYNE- [id number]) Nutritional Asmnt/Malnutrition Patient General Information Nutritional Screening Moderate Risk Diagnosis Psychosis Pertinent Medical Hx/Surgical Hx Diabetes, Hypertension Subjective Information Per H&P, patient was admitted from [facility] for agitation for being a threat to family members and neighbors. Per nursing notes, patient is on fluid restriction due to sodium level. FNS providing patient with ~1600 kcal, 80gm protein; eating 100% of meals. Meeting ~75% of calorie and 89% of protein goals Current Diet Order/ Nutrition Support 60 gm CCHO, NCS Patient / S.O Not Indicated Pertinent Medications Maalox, MOM, Theragran Pertinent Labs (05/23) Na 127, Albumin 3.1, TAG 252, HDL 38, HGA1C 6 Nutritional Hx/Data Height 1.83 m Height (Calculated Centimeters) 182.9 Current Weight (lbs) 108.862 kg Weight (Calculated Kilograms) 108.9 Weight (Calculated Grams) 504986.2 [place] Body Weight 178 % [place] Body Weight 134 Body Mass Index (BMI) 32.5 Recent Weight Change No Weight Status Obese GI Symptoms GI Symptoms None Last BM 05/23 x 1 Difficult in: None Food Allergies No Cultural/Ethnic/Tenriism Belief none indicated Usual diet at home unknown Skin Integrity/Comment: Jone 22, intact Current %PO Good (75-100%) Estimated Nutritional Goals BEE in Kcals: Adj wt of IBW Calories/Kcals/Kg ADj BW 87.9kg Kcals Calculated ~9164-5209 kcal/day (25-30 kcal/kg) Protein: Adj wt of IBW Protein g/kgm/kg Protein Calculated ~90 gm/day Fluid: ml ~5300-1541 kcal/day (1 ml/kcal ) Nutritional Problem 1. Problem Problem Altered nutrition related lab values related to Etiology electrolyte imbalance/possible excessive fat intake aeb Signs/Symptoms: Na 127, TAG 252, HDL 38 Intervention/Recommendation Comments 1. Consider removing CCHO restriction and adding Cardiac due to HGA1C 6 and TAG 252 and Na 127. 2. If sodium remains low, may consider fluid restriction. Expected Outcomes/Goals Expected Outcomes/Goals Oral intake >75% of meals, weight stable or trend toward IBW, nutrition related labs WNL. F/U LR 06/01
[2020-05-30] MEDS: Aspirin 81mg Chewable Tab PO SCH (08:35)
[2020-05-30] MEDS: Multivitamin Tab PO SCH (08:36)
--- NOTE | 2020-05-30 14:13 | Internal Medicine Prog Note ---
Internal Medicine Subjective - Subjective Service Date: 05/30/20 Patient seen and examined:: without staff Patient is:: awake Per staff patient has:: no adverse event (no fevers, no cough, no sob), no episodes of fall (no complaints) Internal Medicine Objective - Results Result Diagrams: 05/23/20 13:05 05/27/20 09:35 Recent Labs: Laboratory Last Values WBC 7.8 K/uL (4.8-10.8) 05/23/20 13:05 RBC 4.36 MIL/uL (4.2-6.2) 05/23/20 13:05 Hgb 13.9 g/dL (14.0-18.0) L 05/23/20 13:05 Hct 40.4 % (36-54) 05/23/20 13:05 MCV 93 fL (79.0-98.0) 05/23/20 13:05 MCH 32 pg (27-31) H 05/23/20 13:05 MCHC 34 % (32-36) 05/23/20 13:05 RDW 13.1 % (9.0-15.0) 05/23/20 13:05 Plt Count 252 K/uL (130-430) 05/23/20 13:05 MPV 6.9 fl (7.4-10.4) L 05/23/20 13:05 Neut % (Auto) 59.5 % (40-70) 05/23/20 13:05 Lymph % (Auto) 29.4 % (20.5-51.5) 05/23/20 13:05 [place] % (Auto) 6.8 % (1.7-9.3) 05/23/20 13:05 Eos % (Auto) 3.6 % (0-4) 05/23/20 13:05 Baso % (Auto) 0.7 % (0.0-2.0) 05/23/20 13:05 Neut # (Auto) 4.6 K/uL (1.8-7.7) 05/23/20 13:05 Lymph # (Auto) 2.3 K/uL (1.0-5.5) 05/23/20 13:05 [place] # (Auto) 0.5 K/uL (0.0-1.0) 05/23/20 13:05 Eos # (Auto) 0.3 K/uL (0.0-0.4) 05/23/20 13:05 Baso # (Auto) 0.1 K/uL (0.0-0.2) 05/23/20 13:05 Sodium 134 mmol/L (136-145) L 05/27/20 09:35 Potassium 4.1 mmol/L (3.5-5.1) 05/27/20 09:35 Chloride 101 mmol/L (98-107) 05/27/20 09:35 Carbon Dioxide 26 mmol/L (23-29) 05/27/20 09:35 Anion Gap 11 (5-15) 05/27/20 09:35 BUN 19 mg/dL (8-21) 05/27/20 09:35 Creatinine 0.88 mg/dL (0.70-1.30) 05/27/20 09:35 Glucose 151 mg/dL (70-99) H 05/27/20 09:35 POC Glucose 150 MG/DL (70 - 105) H 05/21/20 19:56 Hemoglobin A1c 6.0 % (4.8-5.6) H 05/23/20 12:55 Calcium 8.8 mg/dL (8.4-10.2) 05/27/20 09:35 Total Bilirubin 0.4 mg/dL (0.0-1.0) 05/23/20 13:05 AST 23 U/L (10-37) 05/23/20 13:05 ALT 30 U/L (12-78) 05/23/20 13:05 Alkaline Phosphatase 72 U/L (46-116) 05/23/20 13:05 Total Protein 6.2 g/dL (6.4-8.3) L 05/23/20 13:05 Albumin 3.1 g/dL (3.4-5.0) L 05/23/20 13:05 Triglycerides 252 mg/dL (30-150) H 05/23/20 13:05 Cholesterol 139 mg/dL (<200) 05/23/20 13:05 LDL Cholesterol 78 mg/dL (0-129) 05/23/20 13:05 HDL Cholesterol 38 mg/dL (>45) L 05/23/20 13:05 Vitamin B12 541 pg/mL (232-1245) 05/23/20 13:05 TSH 1.64 uIU/ml (0.358-3.740) 05/23/20 13:05 - Physical Exam Vitals and I&O: Vital Signs Temp 98.4 F 05/30/20 05:30 Pulse 74 05/30/20 08:35 Resp 18 05/30/20 08:00 BP 121/75 05/30/20 08:35 Pulse Ox 97 05/30/20 05:30 Intake & Output 05/29/20 05/30/20 05/30/20 18:59 06:59 18:59 Intake Total 1300 240 Balance 1300 240 Intake: Oral 1300 240 Other: # Voids 4 2 # Bowel Movements 0 Stool Characteristics Formed [place] Active Medications: Current Medications Acetaminophen (Tylenol) 650 mg PO Q4H PRN PRN Reason: Pain (Mild 1-3) Stop: 07/20/20 22:21 Acetaminophen (Tylenol Extra Strength) 1,000 mg PO Q6H PRN PRN Reason: Pain (Moderate 4-6) Stop: 07/20/20 22:21 Al Hydrox/Mg Hydrox/Simethicone (Maalox) 30 ml PO Q4HR PRN PRN Reason: GI DISTRESS Stop: 07/20/20 22:21 Last Admin: 05/23/20 23:30 Dose: 30 ml Aspirin (Aspirin Chewable) 81 mg PO DAILY [facility] Stop: 07/22/20 08:59 Last Admin: 05/30/20 08:35 Dose: 81 mg Fluoxetine HCl (Prozac) 10 mg PO DAILY [facility] Stop: 07/24/20 08:59 Last Admin: 05/30/20 08:35 Dose: 10 mg Ibuprofen (Motrin) 400 mg PO Q4H PRN PRN Reason: Pain (Severe 7-10) Stop: 07/20/20 22:21 Lisinopril (Zestril) 5 mg PO DAILY [facility] Stop: 07/24/20 08:59 Last Admin: 05/30/20 08:35 Dose: 5 mg Lorazepam (Ativan) 0.5 mg PO Q4HR PRN; Protocol PRN Reason: Anxiety Stop: 06/20/20 22:21 Last Admin: 05/23/20 23:31 Dose: 0.5 mg Multivitamins/Vitamin C (Theragran) 1 tab PO DAILY [facility] Stop: 07/21/20 08:59 Last Admin: 05/30/20 08:36 Dose: 1 tab Risperidone (Risperdal) 2 mg PO BID [facility] Stop: 07/27/20 16:59 Last Admin: 05/30/20 08:36 Dose: 2 mg Simvastatin (Zocor) 10 mg PO HS [facility]AN Stop: 07/23/20 20:59 Last Admin: 05/29/20 20:14 Dose: 10 mg Zolpidem Tartrate (Ambien) 5 mg PO HS PRN PRN Reason: Insomnia Stop: 07/20/20 22:21 Last Admin: 05/29/20 20:14 Dose: 5 mg General: lethargic HEENT: NC/AT Neck: Supple Lungs: CTAB Cardiovascular: RRR, Normal S1, Normal S2 Abdomen: soft Extremities: clear Neurological: no change - Procedures Procedures: Procedures Procedure Code Date OTHER GROUP THERAPY 94.44 02/04/14 Internal Medicine Assmt/Plan - Assessment Assessment: 1. DM 2. HTN - Plan Plan: advised nursing staff to continue low carb diet reviewed medical records d/w r.n. Nutritional Asmnt/Malnutr-PDOC - Dietary Evaluation Malnutrition Findings (Please click <Entered> for more info): Nutritional Asmnt/Malnutrition Start: 05/25/20 09: 46 Text: Status: Complete Freq: Protocol: Document 05/25/20 09:46 MISTY (Rec: 05/25/20 09:55 MMERIN [email or web address]- [id number]) Nutritional Asmnt/Malnutrition Patient General Information Nutritional Screening Moderate Risk Diagnosis Psychosis Pertinent Medical Hx/Surgical Hx Diabetes, Hypertension Subjective Information Per H&P, patient was admitted from [facility] for agitation for being a threat to family members and neighbors. Per nursing notes, patient is on fluid restriction due to sodium level. FNS providing patient with ~1600 kcal, 80gm protein; eating 100% of meals. Meeting ~75% of calorie and 89% of protein goals Current Diet Order/ Nutrition Support 60 gm CCHO, NCS Patient / S.O Not Indicated Pertinent Medications Maalox, MOM, Theragran Pertinent Labs (05/23) Na 127, Albumin 3.1, TAG 252, HDL 38, HGA1C 6 Nutritional Hx/Data Height 1.83 m Height (Calculated Centimeters) 182.9 Current Weight (lbs) 108.862 kg Weight (Calculated Kilograms) 108.9 Weight (Calculated Grams) 011534.2 [place] Body Weight 178 % [place] Body Weight 134 Body Mass Index (BMI) 32.5 Recent Weight Change No Weight Status Obese GI Symptoms GI Symptoms None Last BM 05/23 x 1 Difficult in: None Food Allergies No Cultural/Ethnic/Hindu Belief none indicated Usual diet at home unknown Skin Integrity/Comment: Jone 22, intact Current %PO Good (75-100%) Estimated Nutritional Goals BEE in Kcals: Adj wt of IBW Calories/Kcals/Kg ADj BW 87.9kg Kcals Calculated ~6719-8588 kcal/day (25-30 kcal/kg) Protein: Adj wt of IBW Protein g/kgm/kg Protein Calculated ~90 gm/day Fluid: ml ~4446-3211 kcal/day (1 ml/kcal ) Nutritional Problem 1. Problem Problem Altered nutrition related lab values related to Etiology electrolyte imbalance/possible excessive fat intake aeb Signs/Symptoms: Na 127, TAG 252, HDL 38 Intervention/Recommendation Comments 1. Consider removing CCHO restriction and adding Cardiac due to HGA1C 6 and TAG 252 and Na 127. 2. If sodium remains low, may consider fluid restriction. Expected Outcomes/Goals Expected Outcomes/Goals Oral intake >75% of meals, weight stable or trend toward IBW, nutrition related labs WNL. F/U LR 06/01
--- NOTE | 2020-05-30 23:20 | Progress Notes ---
DATE: 05/30/[address] Lala. Case was discussed with staff of the patient, reviewed records. This is a 65-year-old male with a history of schizophrenia, who was admitted on 05/21/2020 because apparently has issues with his roommate, was not taking his medication. The patient apparently was stabilized, was supposed to leave yesterday, but it did not go through and they say now he can go on Tuesday. The patient is sleeping well, eating well. The patient with a history of schizophrenia. No side effects with the medication, no sedation, no nausea, no extrapyramidal symptoms. I will continue outpatient group therapy, milieu therapy, and adjust medications as needed. JOB# [id number]
--- NOTE | 2020-05-31 07:20 | Progress Notes ---
DATE: 05/31/2020 SUBJECTIVE: The patient in the hospital, some delays in discharge. Mood "okay." He remains pretty angry, upset, somewhat irritable. Otherwise, likely at his baseline. No overt events, no agitation, slept 5 hours yesterday, somewhat focused on water intake, but does not appear to be over drinking, stating "it is hot," currently on dosing of Prozac, Risperdal, seems to be tolerating well. ASSESSMENT: The patient is calm, generally cooperative. No overt agitation, no behavioral disturbances, aggressive at all, so remains somewhat unkempt. We will continue inpatient monitoring. JOB# [id number]
[2020-05-31] MEDS: Multivitamin Tab PO SCH (08:34)
[2020-05-31] MEDS: Aspirin 81mg Chewable Tab PO SCH (08:34)
--- NOTE | 2020-05-31 10:48 | Internal Medicine Prog Note ---
Internal Medicine Subjective - Subjective Service Date: 05/31/20 Patient seen and examined:: without staff Patient is:: awake Per staff patient has:: no adverse event (no fevers, no cough, no sob), no episodes of fall (no complaints) Internal Medicine Objective - Results Result Diagrams: 05/23/20 13:05 05/27/20 09:35 Recent Labs: Laboratory Last Values WBC 7.8 K/uL (4.8-10.8) 05/23/20 13:05 RBC 4.36 MIL/uL (4.2-6.2) 05/23/20 13:05 Hgb 13.9 g/dL (14.0-18.0) L 05/23/20 13:05 Hct 40.4 % (36-54) 05/23/20 13:05 MCV 93 fL (79.0-98.0) 05/23/20 13:05 MCH 32 pg (27-31) H 05/23/20 13:05 MCHC 34 % (32-36) 05/23/20 13:05 RDW 13.1 % (9.0-15.0) 05/23/20 13:05 Plt Count 252 K/uL (130-430) 05/23/20 13:05 MPV 6.9 fl (7.4-10.4) L 05/23/20 13:05 Neut % (Auto) 59.5 % (40-70) 05/23/20 13:05 Lymph % (Auto) 29.4 % (20.5-51.5) 05/23/20 13:05 [place] % (Auto) 6.8 % (1.7-9.3) 05/23/20 13:05 Eos % (Auto) 3.6 % (0-4) 05/23/20 13:05 Baso % (Auto) 0.7 % (0.0-2.0) 05/23/20 13:05 Neut # (Auto) 4.6 K/uL (1.8-7.7) 05/23/20 13:05 Lymph # (Auto) 2.3 K/uL (1.0-5.5) 05/23/20 13:05 [place] # (Auto) 0.5 K/uL (0.0-1.0) 05/23/20 13:05 Eos # (Auto) 0.3 K/uL (0.0-0.4) 05/23/20 13:05 Baso # (Auto) 0.1 K/uL (0.0-0.2) 05/23/20 13:05 Sodium 134 mmol/L (136-145) L 05/27/20 09:35 Potassium 4.1 mmol/L (3.5-5.1) 05/27/20 09:35 Chloride 101 mmol/L (98-107) 05/27/20 09:35 Carbon Dioxide 26 mmol/L (23-29) 05/27/20 09:35 Anion Gap 11 (5-15) 05/27/20 09:35 BUN 19 mg/dL (8-21) 05/27/20 09:35 Creatinine 0.88 mg/dL (0.70-1.30) 05/27/20 09:35 Glucose 151 mg/dL (70-99) H 05/27/20 09:35 POC Glucose 150 MG/DL (70 - 105) H 05/21/20 19:56 Hemoglobin A1c 6.0 % (4.8-5.6) H 05/23/20 12:55 Calcium 8.8 mg/dL (8.4-10.2) 05/27/20 09:35 Total Bilirubin 0.4 mg/dL (0.0-1.0) 05/23/20 13:05 AST 23 U/L (10-37) 05/23/20 13:05 ALT 30 U/L (12-78) 05/23/20 13:05 Alkaline Phosphatase 72 U/L (46-116) 05/23/20 13:05 Total Protein 6.2 g/dL (6.4-8.3) L 05/23/20 13:05 Albumin 3.1 g/dL (3.4-5.0) L 05/23/20 13:05 Triglycerides 252 mg/dL (30-150) H 05/23/20 13:05 Cholesterol 139 mg/dL (<200) 05/23/20 13:05 LDL Cholesterol 78 mg/dL (0-129) 05/23/20 13:05 HDL Cholesterol 38 mg/dL (>45) L 05/23/20 13:05 Vitamin B12 541 pg/mL (232-1245) 05/23/20 13:05 TSH 1.64 uIU/ml (0.358-3.740) 05/23/20 13:05 - Physical Exam Vitals and I&O: Vital Signs Temp 97.5 F 05/31/20 06:04 Pulse 76 05/31/20 08:34 Resp 20 05/31/20 08:00 BP 133/58 05/31/20 08:34 Pulse Ox 97 05/31/20 06:04 Intake & Output 05/30/20 05/31/20 05/31/20 18:59 06:59 18:59 Intake Total 1000 184 Balance 1000 184 Intake: Oral 1000 184 Other: # Voids 4 2 # Bowel Movements 1 0 Active Medications: Current Medications Acetaminophen (Tylenol) 650 mg PO Q4H PRN PRN Reason: Pain (Mild 1-3) Stop: 07/20/20 22:21 Acetaminophen (Tylenol Extra Strength) 1,000 mg PO Q6H PRN PRN Reason: Pain (Moderate 4-6) Stop: 07/20/20 22:21 Al Hydrox/Mg Hydrox/Simethicone (Maalox) 30 ml PO Q4HR PRN PRN Reason: GI DISTRESS Stop: 07/20/20 22:21 Last Admin: 05/23/20 23:30 Dose: 30 ml Aspirin (Aspirin Chewable) 81 mg PO DAILY [facility] Stop: 07/22/20 08:59 Last Admin: 05/31/20 08:34 Dose: 81 mg Fluoxetine HCl (Prozac) 10 mg PO DAILY [facility] Stop: 07/24/20 08:59 Last Admin: 05/31/20 08:34 Dose: 10 mg Ibuprofen (Motrin) 400 mg PO Q4H PRN PRN Reason: Pain (Severe 7-10) Stop: 07/20/20 22:21 Last Admin: 05/31/20 04:46 Dose: 400 mg Lisinopril (Zestril) 5 mg PO DAILY [facility] Stop: 07/24/20 08:59 Last Admin: 05/31/20 08:34 Dose: 5 mg Lorazepam (Ativan) 0.5 mg PO Q4HR PRN; Protocol PRN Reason: Anxiety Stop: 06/20/20 22:21 Last Admin: 05/23/20 23:31 Dose: 0.5 mg Multivitamins/Vitamin C (Theragran) 1 tab PO DAILY [facility] Stop: 07/21/20 08:59 Last Admin: 05/31/20 08:34 Dose: 1 tab Risperidone (Risperdal) 2 mg PO BID [facility] Stop: 07/27/20 16:59 Last Admin: 05/31/20 08:34 Dose: 2 mg Simvastatin (Zocor) 10 mg PO HS [facility] Stop: 07/23/20 20:59 Last Admin: 05/30/20 21:27 Dose: 10 mg Zolpidem Tartrate (Ambien) 5 mg PO HS PRN PRN Reason: Insomnia Stop: 07/20/20 22:21 Last Admin: 05/30/20 21:28 Dose: 5 mg General: lethargic HEENT: NC/AT Neck: Supple Lungs: CTAB Cardiovascular: RRR, Normal S1, Normal S2 Abdomen: soft Extremities: clear Neurological: no change - Procedures Procedures: Procedures Procedure Code Date OTHER GROUP THERAPY 94.44 02/04/14 Internal Medicine Assmt/Plan - Assessment Assessment: 1. DM 2. HTN - Plan Plan: continue ACEI for BP control advised nursing staff to continue low carb diet reviewed medical records d/w r.n. Nutritional Asmnt/Malnutr-PDOC - Dietary Evaluation Malnutrition Findings (Please click <Entered> for more info): Nutritional Asmnt/Malnutrition Start: 05/25/20 09: 46 Text: Status: Complete Freq: Protocol: Document 05/25/20 09:46 MMERIN (Rec: 05/25/20 09:55 MMULN EVELYNE- [id number]) Nutritional Asmnt/Malnutrition Patient General Information Nutritional Screening Moderate Risk Diagnosis Psychosis Pertinent Medical Hx/Surgical Hx Diabetes, Hypertension Subjective Information Per H&P, patient was admitted from [facility] Er for agitation for being a threat to family members and neighbors. Per nursing notes, patient is on fluid restriction due to sodium level. FNS providing patient with ~1600 kcal, 80gm protein; eating 100% of meals. Meeting ~75% of calorie and 89% of protein goals Current Diet Order/ Nutrition Support 60 gm CCHO, NCS Patient / S.O Not Indicated Pertinent Medications Maalox, MOM, Theragran Pertinent Labs (05/23) Na 127, Albumin 3.1, TAG 252, HDL 38, HGA1C 6 Nutritional Hx/Data Height 1.83 m Height (Calculated Centimeters) 182.9 Current Weight (lbs) 108.862 kg Weight (Calculated Kilograms) 108.9 Weight (Calculated Grams) 127300.2 [place] Body Weight 178 % [place] Body Weight 134 Body Mass Index (BMI) 32.5 Recent Weight Change No Weight Status Obese GI Symptoms GI Symptoms None Last BM 05/23 x 1 Difficult in: None Food Allergies No Cultural/Ethnic/Episcopal Belief none indicated Usual diet at home unknown Skin Integrity/Comment: [place] 22, intact Current %PO Good (75-100%) Estimated Nutritional Goals BEE in Kcals: Adj wt of IBW Calories/Kcals/Kg ADj BW 87.9kg Kcals Calculated ~4855-5601 kcal/day (25-30 kcal/kg) Protein: Adj wt of IBW Protein g/kgm/kg Protein Calculated ~90 gm/day Fluid: ml ~9997-6091 kcal/day (1 ml/kcal ) Nutritional Problem 1. Problem Problem Altered nutrition related lab values related to Etiology electrolyte imbalance/possible excessive fat intake aeb Signs/Symptoms: Na 127, TAG 252, HDL 38 Intervention/Recommendation Comments 1. Consider removing CCHO restriction and adding Cardiac due to HGA1C 6 and TAG 252 and Na 127. 2. If sodium remains low, may consider fluid restriction. Expected Outcomes/Goals Expected Outcomes/Goals Oral intake >75% of meals, weight stable or trend toward IBW, nutrition related labs WNL. F/U LR 06/01
[2020-05-31] MEDS ORDERED: Magnesium Hydroxide (MOM) 30 mL UDC PO PRN (20:57)
--- NOTE | 2020-06-01 07:03 | Progress Notes ---
DATE: 06/01/2020 SUBJECTIVE: A 65-year-old male, currently coming from [facility], history of schizophrenia, threatened a roommate, roommate called the police, problems with the roommate. The patient is generally calmer, more cooperative. No overt agitation or escalation of behaviors, at his baseline, pending discharge likely tomorrow. There were some delays with his discharge 2 days ago. No overt agitation or escalation of behaviors. Resting comfortably, taking his medications. PLAN: We will continue to monitor. JOB# [id number]
[2020-06-01] MEDS: Aspirin 81mg Chewable Tab PO SCH (08:29)
[2020-06-01] MEDS: Multivitamin Tab PO SCH (08:29)
--- NOTE | 2020-06-01 12:13 | Internal Medicine Prog Note ---
Internal Medicine Subjective - Subjective Service Date: 06/01/20 Patient seen and examined:: without staff (complaining of bilateral hand numbness for five years) Patient is:: awake Per staff patient has:: no adverse event (no fevers, no cough, no sob), no episodes of fall (no complaints) Internal Medicine Objective - Results Result Diagrams: 05/23/20 13:05 05/27/20 09:35 Recent Labs: Laboratory Last Values WBC 7.8 K/uL (4.8-10.8) 05/23/20 13:05 RBC 4.36 MIL/uL (4.2-6.2) 05/23/20 13:05 Hgb 13.9 g/dL (14.0-18.0) L 05/23/20 13:05 Hct 40.4 % (36-54) 05/23/20 13:05 MCV 93 fL (79.0-98.0) 05/23/20 13:05 MCH 32 pg (27-31) H 05/23/20 13:05 MCHC 34 % (32-36) 05/23/20 13:05 RDW 13.1 % (9.0-15.0) 05/23/20 13:05 Plt Count 252 K/uL (130-430) 05/23/20 13:05 MPV 6.9 fl (7.4-10.4) L 05/23/20 13:05 Neut % (Auto) 59.5 % (40-70) 05/23/20 13:05 Lymph % (Auto) 29.4 % (20.5-51.5) 05/23/20 13:05 [place] % (Auto) 6.8 % (1.7-9.3) 05/23/20 13:05 Eos % (Auto) 3.6 % (0-4) 05/23/20 13:05 Baso % (Auto) 0.7 % (0.0-2.0) 05/23/20 13:05 Neut # (Auto) 4.6 K/uL (1.8-7.7) 05/23/20 13:05 Lymph # (Auto) 2.3 K/uL (1.0-5.5) 05/23/20 13:05 [place] # (Auto) 0.5 K/uL (0.0-1.0) 05/23/20 13:05 Eos # (Auto) 0.3 K/uL (0.0-0.4) 05/23/20 13:05 Baso # (Auto) 0.1 K/uL (0.0-0.2) 05/23/20 13:05 Sodium 134 mmol/L (136-145) L 05/27/20 09:35 Potassium 4.1 mmol/L (3.5-5.1) 05/27/20 09:35 Chloride 101 mmol/L (98-107) 05/27/20 09:35 Carbon Dioxide 26 mmol/L (23-29) 05/27/20 09:35 Anion Gap 11 (5-15) 05/27/20 09:35 BUN 19 mg/dL (8-21) 05/27/20 09:35 Creatinine 0.88 mg/dL (0.70-1.30) 05/27/20 09:35 Glucose 151 mg/dL (70-99) H 05/27/20 09:35 POC Glucose 150 MG/DL (70 - 105) H 05/21/20 19:56 Hemoglobin A1c 6.0 % (4.8-5.6) H 05/23/20 12:55 Calcium 8.8 mg/dL (8.4-10.2) 05/27/20 09:35 Total Bilirubin 0.4 mg/dL (0.0-1.0) 05/23/20 13:05 AST 23 U/L (10-37) 05/23/20 13:05 ALT 30 U/L (12-78) 05/23/20 13:05 Alkaline Phosphatase 72 U/L (46-116) 05/23/20 13:05 Total Protein 6.2 g/dL (6.4-8.3) L 05/23/20 13:05 Albumin 3.1 g/dL (3.4-5.0) L 05/23/20 13:05 Triglycerides 252 mg/dL (30-150) H 05/23/20 13:05 Cholesterol 139 mg/dL (<200) 05/23/20 13:05 LDL Cholesterol 78 mg/dL (0-129) 05/23/20 13:05 HDL Cholesterol 38 mg/dL (>45) L 05/23/20 13:05 Vitamin B12 541 pg/mL (232-1245) 05/23/20 13:05 TSH 1.64 uIU/ml (0.358-3.740) 05/23/20 13:05 - Physical Exam Vitals and I&O: Vital Signs Temp 97.8 F 06/01/20 05:51 Pulse 90 06/01/20 08:29 Resp 20 06/01/20 08:00 BP 113/66 06/01/20 08:29 Pulse Ox 98 06/01/20 05:51 Intake & Output 05/31/20 06/01/20 06/01/20 18:59 06:59 18:59 Intake Total 1200 240 Balance 1200 240 Intake: Oral 1200 240 Other: # Voids 2 # Bowel Movements 1 Active Medications: Current Medications Acetaminophen (Tylenol) 650 mg PO Q4H PRN PRN Reason: Pain (Mild 1-3) Stop: 07/20/20 22:21 Acetaminophen (Tylenol Extra Strength) 1,000 mg PO Q6H PRN PRN Reason: Pain (Moderate 4-6) Stop: 07/20/20 22:21 Al Hydrox/Mg Hydrox/Simethicone (Maalox) 30 ml PO Q4HR PRN PRN Reason: GI DISTRESS Stop: 07/20/20 22:21 Last Admin: 05/23/20 23:30 Dose: 30 ml Aspirin (Aspirin Chewable) 81 mg PO DAILY [facility] Stop: 07/22/20 08:59 Last Admin: 06/01/20 08:29 Dose: 81 mg Fluoxetine HCl (Prozac) 10 mg PO DAILY [facility] Stop: 07/24/20 08:59 Last Admin: 06/01/20 08:29 Dose: 10 mg Ibuprofen (Motrin) 400 mg PO Q4H PRN PRN Reason: Pain (Severe 7-10) Stop: 07/20/20 22:21 Last Admin: 05/31/20 04:46 Dose: 400 mg Lisinopril (Zestril) 5 mg PO DAILY [facility] Stop: 07/24/20 08:59 Last Admin: 06/01/20 08:29 Dose: 5 mg Lorazepam (Ativan) 0.5 mg PO Q4HR PRN; Protocol PRN Reason: Anxiety Stop: 06/20/20 22:21 Last Admin: 05/23/20 23:31 Dose: 0.5 mg Magnesium Hydroxide (Milk Of Magnesia) 30 ml PO HS PRN PRN Reason: Constipation Stop: 07/30/20 20:56 Last Admin: 05/31/20 22:04 Dose: 30 ml Multivitamins/Vitamin C (Theragran) 1 tab PO DAILY [facility] Stop: 07/21/20 08:59 Last Admin: 06/01/20 08:29 Dose: 1 tab Risperidone (Risperdal) 2 mg PO BID [facility] Stop: 07/27/20 16:59 Last Admin: 06/01/20 08:30 Dose: 2 mg Simvastatin (Zocor) 10 mg PO HS [facility] Stop: 07/23/20 20:59 Last Admin: 05/31/20 21:04 Dose: 10 mg Zolpidem Tartrate (Ambien) 5 mg PO HS PRN PRN Reason: Insomnia Stop: 07/20/20 22:21 Last Admin: 05/31/20 21:04 Dose: 5 mg General: lethargic HEENT: NC/AT Neck: Supple Lungs: CTAB Cardiovascular: RRR, Normal S1, Normal S2 Abdomen: soft Extremities: clear Neurological: no change - Procedures Procedures: Procedures Procedure Code Date OTHER GROUP THERAPY 94.44 02/04/14 Internal Medicine Assmt/Plan - Assessment Assessment: 1. DM 2. HTN 3. Peripheral neuropathy - Plan Plan: continue ACEI for BP control advised nursing staff to continue low carb diet TSH, vitamin b12 is normal d/w r.n. reviewed medical records Nutritional Asmnt/Malnutr-PDOC - Dietary Evaluation Malnutrition Findings (Please click <Entered> for more info): Nutritional Asmnt/Malnutrition Start: 05/25/20 09: 46 Text: Status: Complete Freq: Protocol: Document 05/25/20 09:46 MISTY (Rec: 05/25/20 09:55 [email or web address] [email or web address]- [id number]) Nutritional Asmnt/Malnutrition Patient General Information Nutritional Screening Moderate Risk Diagnosis Psychosis Pertinent Medical Hx/Surgical Hx Diabetes, Hypertension Subjective Information Per H&P, patient was admitted from [facility] for agitation for being a threat to family members and neighbors. Per nursing notes, patient is on fluid restriction due to sodium level. FNS providing patient with ~1600 kcal, 80gm protein; eating 100% of meals. Meeting ~75% of calorie and 89% of protein goals Current Diet Order/ Nutrition Support 60 gm CCHO, NCS Patient / S.O Not Indicated Pertinent Medications Maalox, MOM, Theragran Pertinent Labs (05/23) Na 127, Albumin 3.1, TAG 252, HDL 38, HGA1C 6 Nutritional Hx/Data Height 1.83 m Height (Calculated Centimeters) 182.9 Current Weight (lbs) 108.862 kg Weight (Calculated Kilograms) 108.9 Weight (Calculated Grams) 246443.2 [place] Body Weight 178 % [place] Body Weight 134 Body Mass Index (BMI) 32.5 Recent Weight Change No Weight Status Obese GI Symptoms GI Symptoms None Last BM 05/23 x 1 Difficult in: None Food Allergies No Cultural/Ethnic/[employer]ab[employer] Belief none indicated Usual diet at home unknown Skin Integrity/Comment: Jone 22, intact Current %PO Good (75-100%) Estimated Nutritional Goals BEE in Kcals: Adj wt of IBW Calories/Kcals/Kg ADj BW 87.9kg Kcals Calculated ~6856-6129 kcal/day (25-30 kcal/kg) Protein: Adj wt of IBW Protein g/kgm/kg Protein Calculated ~90 gm/day Fluid: ml ~9317-9062 kcal/day (1 ml/kcal ) Nutritional Problem 1. Problem Problem Altered nutrition related lab values related to Etiology electrolyte imbalance/possible excessive fat intake aeb Signs/Symptoms: Na 127, TAG 252, HDL 38 Intervention/Recommendation Comments 1. Consider removing CCHO restriction and adding Cardiac due to HGA1C 6 and TAG 252 and Na 127. 2. If sodium remains low, may consider fluid restriction. Expected Outcomes/Goals Expected Outcomes/Goals Oral intake >75% of meals, weight stable or trend toward IBW, nutrition related labs WNL. F/U LR 06/01
[2020-06-02] MEDS: Multivitamin Tab PO SCH (09:20)
[2020-06-02] MEDS: Aspirin 81mg Chewable Tab PO SCH (09:20)
--- NOTE | 2020-06-02 12:59 | Internal Medicine Prog Note ---
Internal Medicine Subjective - Subjective Service Date: 06/02/20 Patient seen and examined:: without staff (no fevers, no cough, no chest pain, no sob) Patient is:: awake Per staff patient has:: no adverse event (no fevers, no cough, no sob), no episodes of fall (no complaints) Internal Medicine Objective - Results Result Diagrams: 05/23/20 13:05 05/27/20 09:35 Recent Labs: Laboratory Last Values WBC 7.8 K/uL (4.8-10.8) 05/23/20 13:05 RBC 4.36 MIL/uL (4.2-6.2) 05/23/20 13:05 Hgb 13.9 g/dL (14.0-18.0) L 05/23/20 13:05 Hct 40.4 % (36-54) 05/23/20 13:05 MCV 93 fL (79.0-98.0) 05/23/20 13:05 MCH 32 pg (27-31) H 05/23/20 13:05 MCHC 34 % (32-36) 05/23/20 13:05 RDW 13.1 % (9.0-15.0) 05/23/20 13:05 Plt Count 252 K/uL (130-430) 05/23/20 13:05 MPV 6.9 fl (7.4-10.4) L 05/23/20 13:05 Neut % (Auto) 59.5 % (40-70) 05/23/20 13:05 Lymph % (Auto) 29.4 % (20.5-51.5) 05/23/20 13:05 [place] % (Auto) 6.8 % (1.7-9.3) 05/23/20 13:05 Eos % (Auto) 3.6 % (0-4) 05/23/20 13:05 Baso % (Auto) 0.7 % (0.0-2.0) 05/23/20 13:05 Neut # (Auto) 4.6 K/uL (1.8-7.7) 05/23/20 13:05 Lymph # (Auto) 2.3 K/uL (1.0-5.5) 05/23/20 13:05 [place] # (Auto) 0.5 K/uL (0.0-1.0) 05/23/20 13:05 Eos # (Auto) 0.3 K/uL (0.0-0.4) 05/23/20 13:05 Baso # (Auto) 0.1 K/uL (0.0-0.2) 05/23/20 13:05 Sodium 134 mmol/L (136-145) L 05/27/20 09:35 Potassium 4.1 mmol/L (3.5-5.1) 05/27/20 09:35 Chloride 101 mmol/L (98-107) 05/27/20 09:35 Carbon Dioxide 26 mmol/L (23-29) 05/27/20 09:35 Anion Gap 11 (5-15) 05/27/20 09:35 BUN 19 mg/dL (8-21) 05/27/20 09:35 Creatinine 0.88 mg/dL (0.70-1.30) 05/27/20 09:35 Glucose 151 mg/dL (70-99) H 05/27/20 09:35 POC Glucose 150 MG/DL (70 - 105) H 05/21/20 19:56 Hemoglobin A1c 6.0 % (4.8-5.6) H 05/23/20 12:55 Calcium 8.8 mg/dL (8.4-10.2) 05/27/20 09:35 Total Bilirubin 0.4 mg/dL (0.0-1.0) 05/23/20 13:05 AST 23 U/L (10-37) 05/23/20 13:05 ALT 30 U/L (12-78) 05/23/20 13:05 Alkaline Phosphatase 72 U/L (46-116) 05/23/20 13:05 Total Protein 6.2 g/dL (6.4-8.3) L 05/23/20 13:05 Albumin 3.1 g/dL (3.4-5.0) L 05/23/20 13:05 Triglycerides 252 mg/dL (30-150) H 05/23/20 13:05 Cholesterol 139 mg/dL (<200) 05/23/20 13:05 LDL Cholesterol 78 mg/dL (0-129) 05/23/20 13:05 HDL Cholesterol 38 mg/dL (>45) L 05/23/20 13:05 Vitamin B12 541 pg/mL (232-1245) 05/23/20 13:05 TSH 1.64 uIU/ml (0.358-3.740) 05/23/20 13:05 - Physical Exam Vitals and I&O: Vital Signs Temp 97.9 F 06/02/20 06:51 Pulse 72 06/02/20 09:20 Resp 18 06/02/20 07:42 BP 126/78 06/02/20 09:20 Pulse Ox 97 06/02/20 06:51 Intake & Output 06/01/20 06/02/20 06/02/20 18:59 06:59 18:59 Intake Total 1000 240 Balance 1000 240 Intake: Oral 1000 240 Other: # Voids 4 2 # Bowel Movements 1 0 Active Medications: Current Medications Acetaminophen (Tylenol) 650 mg PO Q4H PRN PRN Reason: Pain (Mild 1-3) Stop: 07/20/20 22:21 Acetaminophen (Tylenol Extra Strength) 1,000 mg PO Q6H PRN PRN Reason: Pain (Moderate 4-6) Stop: 07/20/20 22:21 Al Hydrox/Mg Hydrox/Simethicone (Maalox) 30 ml PO Q4HR PRN PRN Reason: GI DISTRESS Stop: 07/20/20 22:21 Last Admin: 05/23/20 23:30 Dose: 30 ml Aspirin (Aspirin Chewable) 81 mg PO DAILY [facility] Stop: 07/22/20 08:59 Last Admin: 06/02/20 09:20 Dose: 81 mg Fluoxetine HCl (Prozac) 10 mg PO DAILY [facility] Stop: 07/24/20 08:59 Last Admin: 06/02/20 09:20 Dose: 10 mg Ibuprofen (Motrin) 400 mg PO Q4H PRN PRN Reason: Pain (Severe 7-10) Stop: 07/20/20 22:21 Last Admin: 05/31/20 04:46 Dose: 400 mg Lisinopril (Zestril) 5 mg PO DAILY [facility] Stop: 07/24/20 08:59 Last Admin: 06/02/20 09:20 Dose: 5 mg Lorazepam (Ativan) 0.5 mg PO Q4HR PRN; Protocol PRN Reason: Anxiety Stop: 06/20/20 22:21 Last Admin: 05/23/20 23:31 Dose: 0.5 mg Magnesium Hydroxide (Milk Of Magnesia) 30 ml PO HS PRN PRN Reason: Constipation Stop: 07/30/20 20:56 Last Admin: 05/31/20 22:04 Dose: 30 ml Multivitamins/Vitamin C (Theragran) 1 tab PO DAILY [facility] Stop: 07/21/20 08:59 Last Admin: 06/02/20 09:20 Dose: 1 tab Risperidone (Risperdal) 2 mg PO BID JAN Stop: 07/27/20 16:59 Last Admin: 06/02/20 09:21 Dose: 2 mg Simvastatin (Zocor) 10 mg PO HS JAN Stop: 07/23/20 20:59 Last Admin: 06/01/20 21:18 Dose: 10 mg Zolpidem Tartrate (Ambien) 5 mg PO HS PRN PRN Reason: Insomnia Stop: 07/20/20 22:21 Last Admin: 06/01/20 21:18 Dose: 5 mg General: lethargic HEENT: NC/AT Neck: Supple Lungs: CTAB Cardiovascular: RRR, Normal S1, Normal S2 Abdomen: soft Extremities: clear Neurological: no change - Procedures Procedures: Procedures Procedure Code Date OTHER GROUP THERAPY 94.44 02/04/14 Internal Medicine Assmt/Plan - Assessment Assessment: 1. DM 2. HTN 3. Peripheral neuropathy 4. Nicotine dependence - Plan Plan: continue ACEI for BP control advised nursing staff to continue low carb diet smoking cessation advise given d/w r.n. reviewed medical records Nutritional Asmnt/Malnutr-PDOC - Dietary Evaluation Malnutrition Findings (Please click <Entered> for more info): Nutritional Asmnt/Malnutrition Start: 05/25/20 09: 46 Text: Status: Complete Freq: Protocol: Document 05/25/20 09:46 MISTY (Rec: 05/25/20 09:55 [id number]) Nutritional Asmnt/Malnutrition Patient General Information Nutritional Screening Moderate Risk Diagnosis Psychosis Pertinent Medical Hx/Surgical Hx Diabetes, Hypertension Subjective Information Per H&P, patient was admitted from [facility] for agitation for being a threat to family members and neighbors. Per nursing notes, patient is on fluid restriction due to sodium level. FNS providing patient with ~1600 kcal, 80gm protein; eating 100% of meals. Meeting ~75% of calorie and 89% of protein goals Current Diet Order/ Nutrition Support 60 gm CCHO, NCS Patient / S.O Not Indicated Pertinent Medications Maalox, MOM, Theragran Pertinent Labs (05/23) Na 127, Albumin 3.1, TAG 252, HDL 38, HGA1C 6 Nutritional Hx/Data Height 1.83 m Height (Calculated Centimeters) 182.9 Current Weight (lbs) 108.862 kg Weight (Calculated Kilograms) 108.9 Weight (Calculated Grams) 604249.2 [place] Body Weight 178 % [place] Body Weight 134 Body Mass Index (BMI) 32.5 Recent Weight Change No Weight Status Obese GI Symptoms GI Symptoms None Last BM 05/23 x 1 Difficult in: None Food Allergies No Cultural/Ethnic/Shinto Belief none indicated Usual diet at home unknown Skin Integrity/Comment: [place] 22, intact Current %PO Good (75-100%) Estimated Nutritional Goals BEE in Kcals: Adj wt of IBW Calories/Kcals/Kg ADj BW 87.9kg Kcals Calculated ~4407-7628 kcal/day (25-30 kcal/kg) Protein: Adj wt of IBW Protein g/kgm/kg Protein Calculated ~90 gm/day Fluid: ml ~9418-9072 kcal/day (1 ml/kcal ) Nutritional Problem 1. Problem Problem Altered nutrition related lab values related to Etiology electrolyte imbalance/possible excessive fat intake aeb Signs/Symptoms: Na 127, TAG 252, HDL 38 Intervention/Recommendation Comments 1. Consider removing CCHO restriction and adding Cardiac due to HGA1C 6 and TAG 252 and Na 127. 2. If sodium remains low, may consider fluid restriction. Expected Outcomes/Goals Expected Outcomes/Goals Oral intake >75% of meals, weight stable or trend toward IBW, nutrition related labs WNL. F/U LR 06/01
--- NOTE | 2020-06-02 19:56 | Progress Notes ---
DATE: 06/02/2020 SUBJECTIVE: A 65-year-old male, calm, generally cooperative. He was supposed to have left on Tuesday due to some delays with transportation the discharge was delayed until today. Otherwise, calm, generally cooperative, linear. No SI, no HI, no overt psychotic symptoms. PLAN: We will discharge today, staff aware. JOB# [id number]
== END 2020-06-02 17:00 | disposition home or self-care (01) | DRG 885 ==
LOC: GERO 19:34
PROVIDERS: ADMIT Psychiatry & Neurology Psychiatry; ATTEND Psychiatry & Neurology Psychiatry
DX: F20.9 Schizophrenia, unspecified (principal); I10 Essential (primary) hypertension; E11.42 Type 2 diabetes mellitus with diabetic polyneuropathy; F17.200 Nicotine dependence, unspecified, uncomplicated
CPT/HCPCS: 36415-UA; 80048-TC; 80053-TC; 80061-TC; 82607-90; 82948-90; 83036-90; 84443-TC; 85025-TC; 90899; G0410; Z7610